=== PATIENT | female | born 1935 | race Caucasian/White ===

== ENCOUNTER 2018-04-16 09:14 | Observation (INO) | payer MEDICARE ==
[~2018-04-16] VITALS: Ht 144.8 cm; Wt 74.8 kg
[~2018-04-16 09:14] MED LIST: ALBU90OI6 INH; ALPR.5; ALPR.5 PO; ATECHL; ATECHL PO; ATEN50; ATEN50 PO; BUME1 PO; BUME2 PO; CHLO25B; CIME400; CIPR500 PO; Duoneb 2.5-0.5 M3 ML INH; ESCI10 PO; ESTEST.625; FLUSAL2505; FLUSAL2505 IH; FLUSAL2505 INH; FURO80; FURO80 PO; GABA100 PO; HYDACE5 PO; IBUHYD; IBUHYD PO; LEVSOD100 PO; LEVSOD50 PO; LIDO5TP TOP; LOSA50; LOSA50 PO; Levaquin500 MG PO; MAGNESIUM400 M1 PO; OMEP20ER; OMEP20ER PO; ORTHO EST; OXYACE5T PO; OXYGEN; POTA10T; POTA10T PO; POTA20PAC PO; POTA8 PO; POTCHL20ER PO; PRILOSEC; PROM25 PO; PROVENTIL; TENORETIC; TENORMIN PO; TOLT2; Zithromax250 MG PO; [UNRECOGNIZED DRUG - CODE]
[2018-04-16] MEDS ORDERED: OMEPRAZOLE MAGN20 MG PO (09:33)
[2018-04-16] MEDS ORDERED: LEVSOD50 PO (09:33)
[2018-04-16] MEDS ORDERED: ALPR.5 PO (09:33)
[2018-04-16] MEDS ORDERED: POTA20LUD PO (09:34)
[2018-04-16] MEDS ORDERED: TENORETIC PO (09:35)
[2018-04-16] MEDS ORDERED: OXYC10TA19 PO (09:35)
[2018-04-16] MEDS ORDERED: FURO80 PO (09:35)
[2018-04-16 10:23] LABS: BASOPHILS ABSOLUTE AUTO 0.07 K/mm3 (0.00-0.23); BASOPHILS PERCENT AUTO 1 % (0-2); EOSINOPHILS ABSOLUTE AUTO 0.25 K/mm3 (0.00-0.68); EOSINOPHILS PERCENT AUTO 3 % (0-6); Hematocrit 30.4 % (33.0-51.0); Hemoglobin 9.9 g/dL (11.5-16.0); IMMATURE GRAN ABSOLUTE AUTO 0.02 K/mm3 (0.00-0.10); IMMATURE GRAN PERCENT AUTO 0 % (0-1); LYMPHOCYTES ABSOLUTE AUTO 0.81 K/mm3 (0.84-5.20); LYMPHOCYTES PERCENT AUTO 10 % (21-46); MONOCYTES ABSOLUTE AUTO 0.98 K/mm3 (0.16-1.47); MONOCYTES PERCENT AUTO 12 % (4-13); Mean Corpuscular HGB 32.8 pg (26.0-34.0); Mean Corpuscular HGB Conc 32.6 g/dL (31.5-36.5); Mean Corpuscular Volume 101 fL (80-100); Mean Platelet Volume 10.1 fL (9.1-12.4); NEUTROPHILS ABSOLUTE AUTO 5.95 K/mm3 (1.96-9.15); NEUTROPHILS PERCENT AUTO 74 % (41-73); Platelet Count 198 K/mm3 (150-400); RDW Coefficient Variation 14.5 % (11.7-14.2); RDW Standard Deviation 53.6 fL (35.1-46.3); Red Blood Cell Count 3.02 M/mm3 (3.80-5.20); White Blood Cell Count 8.08 K/mm3 (4.00-11.30)
[2018-04-16 10:43] LABS: Albumin, Blood 3.3 g/dL (3.4-5.0); Bilirubin, Total 0.9 mg/dL (0.1-1.0); Bun/Creatinine Ratio 13.3 (12.0-20.0); Calcium, Blood 5.5 mg/dL (8.5-10.1); Creatinine, Blood 2.4 mg/dL (0.40-1.00); Globulin, Blood 3.3 g/dL (2.2-4.0); Potassium, Blood 3.3 mmol/L (3.5-5.5); Total Protein, Blood 6.6 g/dL (6.4-8.2)
[2018-04-16 11:52] LABS: Magnesium, Blood 2.1 mg/dL (1.6-2.4)
[2018-04-16 21:05] LABS: Uric Acid, Blood 7.7 mg/dL (2.6-6.0)
[2018-04-17 06:16] LABS: Anion Gap 9 mmol/L (6-16); Blood Urea Nitrogen 28 mg/dL (8-24); Bun/Creatinine Ratio 13.4 (12.0-20.0); CO2, Blood 24 mmol/L (21-32); Calcium, Blood 5.9 mg/dL (8.5-10.1); Chloride, Blood 102 mmol/L (98-108); Creatinine, Blood 2.09 mg/dL (0.40-1.00); Glomerular Filtration Rate 24 (60-); Glucose, Blood 84 mg/dL (70-99); Phosphorus, Blood 2.4 mg/dL (2.5-4.9); Potassium, Blood 3.6 mmol/L (3.5-5.5); Sodium, Blood 135 mmol/L (136-145)
[2018-04-17] MEDS ORDERED: COLCRYS0.6 MG PO (10:17)
[2018-04-17] MEDS ORDERED: Neurontin 100100 MG PO (10:19)
[2018-04-17] MEDS ORDERED: METO50ER PO (10:19)
[2018-04-17] MEDS ORDERED: CITRACAL + D E1 EACH PO (10:21)
== END 2018-04-17 11:15 | disposition home or self-care (01) ==
LOC: ER 09:14 → MEDS 09:15 → ENPENDDIS 04-17 08:30 → MEDS 04-17 11:15
PROVIDERS: Emergency Medicine; Family Medicine
DX: M10.9 Gout, unspecified (principal); I12.9 Hypertensive chronic kidney disease with stage 1 through stage 4 chronic kidney disease, or unspecified chronic kidney disease; N18.9 Chronic kidney disease, unspecified; Q61.3 Polycystic kidney, unspecified; E83.51 Hypocalcemia; E87.6 Hypokalemia; J44.9 Chronic obstructive pulmonary disease, unspecified; R09.02 Hypoxemia; M15.9 Polyosteoarthritis, unspecified; E03.9 Hypothyroidism, unspecified; K21.9 Gastro-esophageal reflux disease without esophagitis; F41.1 Generalized anxiety disorder; Z79.899 Other long term (current) drug therapy; Z88.0 Allergy status to penicillin; Z91.041 Radiographic dye allergy status
CPT/HCPCS: 36415; 80053; 80069; 83735; 84550; 85025; 96361; 96365; 96366; 96367; 99285; G0378; J0610; J3370; J3480; J7120

== ENCOUNTER 2019-10-05 07:03 | Observation (INO) | payer MEDICARE ==
[~2019-10-05] VITALS: Ht 152.4 cm; Wt 73.9 kg
[~2019-10-05 07:03] MED LIST changes: +CITRACAL + D E1 EACH PO; +COLCHICINE0.6 MG PO; +METO50ER PO; +Neurontin 100100 MG PO; +OMEPRAZOLE MAGN20 MG PO; +OXYC10TA19 PO; +POTA20LUD PO; +TENORETIC PO
[2019-10-05 08:07] LABS: BASOPHILS ABSOLUTE AUTO 0.08 K/mm3 (0.00-0.23); BASOPHILS PERCENT AUTO 1 % (0-2); EOSINOPHILS ABSOLUTE AUTO 0.28 K/mm3 (0.00-0.68); EOSINOPHILS PERCENT AUTO 4 % (0-6); Hematocrit 37.5 % (33.0-51.0); IMMATURE GRAN ABSOLUTE AUTO 0.02 K/mm3 (0.00-0.10); IMMATURE GRAN PERCENT AUTO 0 % (0-1); LYMPHOCYTES ABSOLUTE AUTO 1.27 K/mm3 (0.84-5.20); LYMPHOCYTES PERCENT AUTO 17 % (21-46); MONOCYTES ABSOLUTE AUTO 0.45 K/mm3 (0.16-1.47); MONOCYTES PERCENT AUTO 6 % (4-13); Mean Corpuscular HGB 31.4 pg (26.0-34.0); Mean Corpuscular Volume 98 fL (80-100); Mean Platelet Volume 9.5 fL (9.1-12.4); NEUTROPHILS ABSOLUTE AUTO 5.41 K/mm3 (1.96-9.15); NEUTROPHILS PERCENT AUTO 72 % (41-73); Platelet Count 208 K/mm3 (150-400); RDW Standard Deviation 49.6 fL (35.1-46.3); Red Blood Cell Count 3.82 M/mm3 (3.80-5.20); White Blood Cell Count 7.51 K/mm3 (4.00-11.30)
[2019-10-05 08:31] LABS: Alanine Aminotransfer (ALT/SGP 17 U/L (12-78); Albumin, Blood 4.1 g/dL (3.4-5.0); Albumin/Globulin Ratio 1.3 (0.8-1.8); Alk Phos 56 U/L (50-136); Anion Gap 7 mmol/L (6-16); Aspartate Aminotrans (AST/SGOT 25 U/L (12-37); Bilirubin, Total 0.6 mg/dL (0.1-1.0); Blood Urea Nitrogen 17 mg/dL (8-24); Bun/Creatinine Ratio 8.4 (12.0-20.0); CO2, Blood 27 mmol/L (21-32); Calcium, Blood 8.8 mg/dL (8.5-10.1); Chloride, Blood 107 mmol/L (98-108); Creatinine, Blood 2.03 mg/dL (0.40-1.00); Globulin, Blood 3.1 g/dL (2.2-4.0); Glomerular Filtration Rate 25 (60-); Glucose, Blood 94 mg/dL (70-99); Potassium, Blood 3.7 mmol/L (3.5-5.5); Sodium, Blood 141 mmol/L (136-145); Total Protein, Blood 7.2 g/dL (6.4-8.2); Troponin I <0.015 ng/mL (0.000-0.040)
[2019-10-05 10:16] LABS: Magnesium, Blood 2.1 mg/dL (1.6-2.4); Phosphorus, Blood 2.6 mg/dL (2.5-4.9)
[2019-10-05 13:25] LABS: Source, Urine Clean Catch
[2019-10-05 13:34] LABS: Bilirubin, Urine Neg (Neg); Blood, Urine Neg (Neg); Glucose Qualitative, Urine Neg (Neg); Ketones, Urine Neg (Neg); Leukocyte Esterase, Urine Neg (Neg); Nitrite, Urine Neg (Neg); Protein, Urine Neg (Neg); Urobilinogen, Urine NORM (Normal)
[2019-10-05 13:47] LABS: Appearance, Urine Clear (Clear); Color, Urine Yellow (P-Yellow)
[2019-10-05] MEDS ORDERED: Bumetanide1 MG PO (16:04)
--- NOTE | 2019-10-05 16:46 | NUR ---
ARRIVES FROM [facility] VIA W/C. ALERT. ORIENTED. TELE ON AND PER TECH SB AT 59. AWARE MEDS RECONCILLED UP HERE. HAS HAD NTG HEADACHE WITHOUT RELIEF WITH MEDS. WHEN ASKED IF SHE NEEDS SOMETHING ELSE STS "I'LL WAIT."C/O "FLUTTERY BURNING SENSATION MIDSTERNAL". AWARE AND ORDERED MEDS. STEADY GAIT W/WALKER IN ROOM AND IN HALLWAY W/RELATIVE. WCTM
[2019-10-06 04:41] LABS: BASOPHILS ABSOLUTE AUTO 0.07 K/mm3 (0.00-0.23); BASOPHILS PERCENT AUTO 1 % (0-2); EOSINOPHILS ABSOLUTE AUTO 0.38 K/mm3 (0.00-0.68); EOSINOPHILS PERCENT AUTO 5 % (0-6); Hematocrit 33.2 % (33.0-51.0); Hemoglobin 10.6 g/dL (11.5-16.0); IMMATURE GRAN ABSOLUTE AUTO 0.02 K/mm3 (0.00-0.10); IMMATURE GRAN PERCENT AUTO 0 % (0-1); LYMPHOCYTES ABSOLUTE AUTO 2.71 K/mm3 (0.84-5.20); LYMPHOCYTES PERCENT AUTO 35 % (21-46); MONOCYTES ABSOLUTE AUTO 0.73 K/mm3 (0.16-1.47); MONOCYTES PERCENT AUTO 9 % (4-13); Mean Corpuscular HGB 32.3 pg (26.0-34.0); Mean Corpuscular HGB Conc 31.9 g/dL (31.5-36.5); Mean Platelet Volume 9.6 fL (9.1-12.4); NEUTROPHILS ABSOLUTE AUTO 3.86 K/mm3 (1.96-9.15); NEUTROPHILS PERCENT AUTO 50 % (41-73); Platelet Count 171 K/mm3 (150-400); RDW Coefficient Variation 14.2 % (11.7-14.2); RDW Standard Deviation 50.8 fL (35.1-46.3); Red Blood Cell Count 3.28 M/mm3 (3.80-5.20); White Blood Cell Count 7.77 K/mm3 (4.00-11.30)
[2019-10-06 04:47] LABS: Mean Corpuscular Volume 101 fL (80-100)
--- NOTE | 2019-10-06 05:06 | NUR ---
SHIFT SUMMARY NO ACUTE CHANGES TO REPORT THIS SHIFT. PT REMAINS HYPERTENSIVE, BUT BP CAME NO WHERE NEAR HER NUMBERS WHEN SHE WAS ADMITTED. HYDRALYZINE ORDERED FOR BP ABOVE 180. SHE HAS NOT NEEDED HYDRALYZINE THIS SHIFT. PT RECEIVED HER ANTIHYPERTENSIVES HS. SHE COMPLAINS OF BACK PAIN THIS SHIFT AND SOME SCIATIC PAIN. MEDICATED X1 WITH ULTRAM WITH EFFECT. TROPONIN'S HAVE BEEN NEGATIVE. PT A/OX4, CALLS APPROPRIATELY. OVERALL RESTFUL NIGHT. 3L O2 PER PT REQUEST. SHE STATES SHE WEARS 3L AT NOC PRN. PT SATS WNL ON RA. NSR ON TELE. BED IN LOWEST POSITION, CALL LIGHT WITHIN REACH. WILL CONTINUE TO MONITOR AND REPORT TO ONCOMING RN.
[2019-10-06 05:11] LABS: Bun/Creatinine Ratio 9.1 (12.0-20.0); Calcium, Blood 8.3 mg/dL (8.5-10.1); Creatinine, Blood 2.31 mg/dL (0.40-1.00); Potassium, Blood 3.7 mmol/L (3.5-5.5)
[2019-10-06] MEDS ORDERED: CLON.1 PO (08:50)
--- NOTE | 2019-10-06 11:25 | NUR ---
RX FOR ZOFRAN 4 MG ODT ONE Q 8 HRS PRN NAUSEA #10 CALLED TO TRAVON PER
--- NOTE | 2019-10-06 11:58 | NUR ---
REVIEW D'C WITH PATIENT . AWARE HAS ONE MED AT [facility]. HAS F/U APPT W/ TOMORROW. AWARE MAY DO SOME OUT PATIENT PROCEDURES. ANSWER ALL QUESTIONS. IN W/C TO POV.
== END 2019-10-06 12:04 | disposition home or self-care (01) ==
LOC: ER 07:03 → MEDS 07:04
PROVIDERS: Emergency Medicine; Nurse Practitioner Acute Care; ADMIT Internal Medicine
DX: I16.0 Hypertensive urgency (principal); R07.89 Other chest pain; I12.9 Hypertensive chronic kidney disease with stage 1 through stage 4 chronic kidney disease, or unspecified chronic kidney disease; N18.4 Chronic kidney disease, stage 4 (severe); E03.9 Hypothyroidism, unspecified; F41.1 Generalized anxiety disorder; J44.9 Chronic obstructive pulmonary disease, unspecified; G47.36 Sleep related hypoventilation in conditions classified elsewhere; Z79.899 Other long term (current) drug therapy; Z88.0 Allergy status to penicillin; Z88.8 Allergy status to other drugs, medicaments and biological substances; Z91.041 Radiographic dye allergy status; Z91.013 Allergy to seafood
CPT/HCPCS: 36415; 71045; 80048; 80053; 81003; 83735; 84100; 84443; 84484; 85025; 93005; 93010; 96372; 96374; 99285-25; A9270; G0378; J1644; J2405

== ENCOUNTER 2019-11-04 08:14 | Emergency (ER) | payer MEDICARE ==
[~2019-11-04] VITALS: Ht 162.6 cm; Wt 72.6 kg
[~2019-11-04 08:14] MED LIST changes: +Bumetanide1 MG PO; +CLON.1 PO
[2019-11-04 09:25] LABS: Calcium, Ionized (POC) 0.94 mmol/L (1.10-1.46); Chloride (POC) 99 mmol/L (98-108); Creatinine (POC) 2.2 mg/dL (0.6-1.0); Glucose (ISTAT POC) 95 mg/dL (70-99); Hemoglobin (POC) 11.9 g/dL (12.0-16.0); Potassium (POC) 3.5 mmol/L (3.5-5.5); Sodium (POC) 140 mmol/L (135-148); Total CO2 (POC) 31 mmol/L (21-32)
== END 2019-11-04 09:40 | disposition home or self-care (01) ==
LOC: ER 08:14
PROVIDERS: Emergency Medicine
DX: T83.021A Displacement of indwelling urethral catheter, initial encounter (principal); R34 Anuria and oliguria; I10 Essential (primary) hypertension; J44.9 Chronic obstructive pulmonary disease, unspecified; K21.9 Gastro-esophageal reflux disease without esophagitis; Z88.0 Allergy status to penicillin; Z91.013 Allergy to seafood; Z91.048 Other nonmedicinal substance allergy status; Z88.8 Allergy status to other drugs, medicaments and biological substances; Z91.09 Other allergy status, other than to drugs and biological substances; Z79.899 Other long term (current) drug therapy; M54.5 Low back pain; M10.9 Gout, unspecified; Q61.3 Polycystic kidney, unspecified
CPT/HCPCS: 36415; 51702; 51798; 74176; 80047; 80053; 85014; 85025; 93005; 93010; 96374-59; 96375-59; 99283-25; 99284-25; A9270-GY; J2405; J3010

== ENCOUNTER 2020-02-21 12:03 | Inpatient (IN) | payer MEDICARE ==
[~2020-02-21] VITALS: Ht 149.9 cm; Wt 56.7 kg
[~2020-02-21 12:03] MED LIST changes: -Bumetanide1 MG PO; -CLON.1 PO; -METO50ER PO; -Neurontin 100100 MG PO; -OXYC10TA19 PO
[2020-02-21] MEDS ORDERED: OXYC5 PO (13:27)
[2020-02-21] MEDS ORDERED: CLON.1 PO (13:28)
[2020-02-21] MEDS ORDERED: Bumetanide2 MG PO (13:28)
[2020-02-21] MEDS ORDERED: ZALE10 PO (13:29)
[2020-02-21] MEDS ORDERED: Neurontin 100100 MG PO (13:30)
[2020-02-21] MEDS ORDERED: METO50ER PO (13:30)
[2020-02-21] MEDS ORDERED: LEVSOD50 PO (13:31)
[2020-02-21 13:39] LABS: BASOPHILS ABSOLUTE AUTO 0.03 K/mm3 (0.00-0.23); BASOPHILS PERCENT AUTO 1 % (0-2); EOSINOPHILS ABSOLUTE AUTO 0.06 K/mm3 (0.00-0.68); EOSINOPHILS PERCENT AUTO 1 % (0-6); Hematocrit 29.8 % (33.0-51.0); Hemoglobin 9.7 g/dL (11.5-16.0); IMMATURE GRAN ABSOLUTE AUTO 0.02 K/mm3 (0.00-0.10); IMMATURE GRAN PERCENT AUTO 0 % (0-1); LYMPHOCYTES ABSOLUTE AUTO 0.85 K/mm3 (0.84-5.20); LYMPHOCYTES PERCENT AUTO 13 % (21-46); MONOCYTES ABSOLUTE AUTO 0.61 K/mm3 (0.16-1.47); MONOCYTES PERCENT AUTO 9 % (4-13); Mean Corpuscular HGB 31.5 pg (26.0-34.0); Mean Corpuscular HGB Conc 32.6 g/dL (31.5-36.5); Mean Corpuscular Volume 97 fL (80-100); NEUTROPHILS ABSOLUTE AUTO 5.06 K/mm3 (1.96-9.15); NEUTROPHILS PERCENT AUTO 76 % (41-73); Platelet Count 157 K/mm3 (150-400); RDW Coefficient Variation 16.2 % (11.7-14.2); RDW Standard Deviation 58.1 fL (35.1-46.3); Red Blood Cell Count 3.08 M/mm3 (3.80-5.20); White Blood Cell Count 6.63 K/mm3 (4.00-11.30)
[2020-02-21 13:54] LABS: Albumin, Blood 3.2 g/dL (3.4-5.0); Albumin/Globulin Ratio 1.1 (0.8-1.8); Bilirubin, Total 0.7 mg/dL (0.1-1.0); Bun/Creatinine Ratio 12.4 (12.0-20.0); Creatinine, Blood 2.98 mg/dL (0.40-1.00); Potassium, Blood 3.5 mmol/L (3.5-5.5); Total Protein, Blood 6.2 g/dL (6.4-8.2)
[2020-02-22 04:37] LABS: Hematocrit 27.6 % (33.0-51.0); Mean Corpuscular HGB 30.7 pg (26.0-34.0); Mean Corpuscular HGB Conc 32.6 g/dL (31.5-36.5); Mean Platelet Volume 10.3 fL (9.1-12.4); Platelet Count 128 K/mm3 (150-400); RDW Coefficient Variation 16.4 % (11.7-14.2); RDW Standard Deviation 56.9 fL (35.1-46.3); Red Blood Cell Count 2.93 M/mm3 (3.80-5.20); White Blood Cell Count 6.92 K/mm3 (4.00-11.30)
[2020-02-22 04:38] LABS: Mean Corpuscular Volume 94 fL (80-100)
[2020-02-22 04:48] LABS: International Normalized Ratio 1.02; Prothrombin Time Results 10.9 Sec (9.7-11.5)
[2020-02-22 04:54] LABS: Albumin, Blood 2.7 g/dL (3.4-5.0); Bilirubin, Total 0.8 mg/dL (0.1-1.0); Bun/Creatinine Ratio 13.3 (12.0-20.0); Calcium, Blood 7.7 mg/dL (8.5-10.1); Creatinine, Blood 2.55 mg/dL (0.40-1.00); Globulin, Blood 2.6 g/dL (2.2-4.0); Potassium, Blood 3.4 mmol/L (3.5-5.5); Total Protein, Blood 5.3 g/dL (6.4-8.2)
[2020-02-23 04:34] LABS: BASOPHILS ABSOLUTE AUTO 0.04 K/mm3 (0.00-0.23); BASOPHILS PERCENT AUTO 1 % (0-2); EOSINOPHILS ABSOLUTE AUTO 0.14 K/mm3 (0.00-0.68); EOSINOPHILS PERCENT AUTO 2 % (0-6); Hematocrit 27.1 % (33.0-51.0); Hemoglobin 8.7 g/dL (11.5-16.0); IMMATURE GRAN ABSOLUTE AUTO 0.04 K/mm3 (0.00-0.10); IMMATURE GRAN PERCENT AUTO 1 % (0-1); LYMPHOCYTES ABSOLUTE AUTO 1.47 K/mm3 (0.84-5.20); LYMPHOCYTES PERCENT AUTO 19 % (21-46); MONOCYTES ABSOLUTE AUTO 1.08 K/mm3 (0.16-1.47); MONOCYTES PERCENT AUTO 14 % (4-13); Mean Corpuscular HGB 31.5 pg (26.0-34.0); Mean Corpuscular HGB Conc 32.1 g/dL (31.5-36.5); Mean Platelet Volume 10.3 fL (9.1-12.4); NEUTROPHILS ABSOLUTE AUTO 4.97 K/mm3 (1.96-9.15); NEUTROPHILS PERCENT AUTO 64 % (41-73); Platelet Count 169 K/mm3 (150-400); RDW Coefficient Variation 16.7 % (11.7-14.2); RDW Standard Deviation 60.4 fL (35.1-46.3); Red Blood Cell Count 2.76 M/mm3 (3.80-5.20); White Blood Cell Count 7.74 K/mm3 (4.00-11.30)
[2020-02-23 04:36] LABS: Mean Corpuscular Volume 98 fL (80-100)
[2020-02-23 04:55] LABS: Albumin, Blood 2.5 g/dL (3.4-5.0); Anion Gap 4 mmol/L (6-16); Blood Urea Nitrogen 30 mg/dL (8-24); Bun/Creatinine Ratio 12.2 (12.0-20.0); CO2, Blood 29 mmol/L (21-32); Calcium, Blood 7.7 mg/dL (8.5-10.1); Chloride, Blood 106 mmol/L (98-108); Creatinine, Blood 2.45 mg/dL (0.40-1.00); Glomerular Filtration Rate 20 (60-); Glucose, Blood 93 mg/dL (70-99); Phosphorus, Blood 3.1 mg/dL (2.5-4.9); Potassium, Blood 3.5 mmol/L (3.5-5.5); Sodium, Blood 139 mmol/L (136-145)
[2020-02-24 04:17] LABS: BASOPHILS ABSOLUTE AUTO 0.04 K/mm3 (0.00-0.23); BASOPHILS PERCENT AUTO 1 % (0-2); EOSINOPHILS ABSOLUTE AUTO 0.43 K/mm3 (0.00-0.68); EOSINOPHILS PERCENT AUTO 6 % (0-6); Hematocrit 21.7 % (33.0-51.0); IMMATURE GRAN ABSOLUTE AUTO 0.03 K/mm3 (0.00-0.10); IMMATURE GRAN PERCENT AUTO 0 % (0-1); LYMPHOCYTES ABSOLUTE AUTO 1.61 K/mm3 (0.84-5.20); LYMPHOCYTES PERCENT AUTO 24 % (21-46); MONOCYTES ABSOLUTE AUTO 0.91 K/mm3 (0.16-1.47); MONOCYTES PERCENT AUTO 14 % (4-13); Mean Corpuscular HGB 31.5 pg (26.0-34.0); Mean Corpuscular HGB Conc 32.3 g/dL (31.5-36.5); Mean Corpuscular Volume 98 fL (80-100); Mean Platelet Volume 10.2 fL (9.1-12.4); NEUTROPHILS ABSOLUTE AUTO 3.71 K/mm3 (1.96-9.15); NEUTROPHILS PERCENT AUTO 55 % (41-73); Platelet Count 127 K/mm3 (150-400); RDW Coefficient Variation 16.5 % (11.7-14.2); RDW Standard Deviation 59.4 fL (35.1-46.3); Red Blood Cell Count 2.22 M/mm3 (3.80-5.20); White Blood Cell Count 6.73 K/mm3 (4.00-11.30)
[2020-02-24 04:37] LABS: Albumin, Blood 2.2 g/dL (3.4-5.0); Anion Gap 6 mmol/L (6-16); Blood Urea Nitrogen 32 mg/dL (8-24); Bun/Creatinine Ratio 12.2 (12.0-20.0); CO2, Blood 28 mmol/L (21-32); Calcium, Blood 7.8 mg/dL (8.5-10.1); Chloride, Blood 103 mmol/L (98-108); Creatinine, Blood 2.62 mg/dL (0.40-1.00); Glomerular Filtration Rate 19 (60-); Glucose, Blood 103 mg/dL (70-99); Magnesium, Blood 1.7 mg/dL (1.6-2.4); Potassium, Blood 3.7 mmol/L (3.5-5.5); Sodium, Blood 137 mmol/L (136-145)
[2020-02-25 03:51] LABS: Hematocrit 26.9 % (33.0-51.0); Hemoglobin 8.7 g/dL (11.5-16.0); Mean Corpuscular HGB 30.7 pg (26.0-34.0); Mean Corpuscular HGB Conc 32.3 g/dL (31.5-36.5); Mean Platelet Volume 10.2 fL (9.1-12.4); Platelet Count 168 K/mm3 (150-400); RDW Coefficient Variation 16.2 % (11.7-14.2); RDW Standard Deviation 56.2 fL (35.1-46.3); Red Blood Cell Count 2.83 M/mm3 (3.80-5.20); White Blood Cell Count 7.88 K/mm3 (4.00-11.30)
[2020-02-25 03:55] LABS: Mean Corpuscular Volume 95 fL (80-100)
[2020-02-25 04:09] LABS: Albumin, Blood 2.5 g/dL (3.4-5.0); Anion Gap 6 mmol/L (6-16); Blood Urea Nitrogen 31 mg/dL (8-24); Bun/Creatinine Ratio 13.7 (12.0-20.0); CO2, Blood 30 mmol/L (21-32); Calcium, Blood 8.7 mg/dL (8.5-10.1); Chloride, Blood 102 mmol/L (98-108); Creatinine, Blood 2.26 mg/dL (0.40-1.00); Glomerular Filtration Rate 22 (60-); Glucose, Blood 96 mg/dL (70-99); Magnesium, Blood 1.9 mg/dL (1.6-2.4); Phosphorus, Blood 3.9 mg/dL (2.5-4.9); Sodium, Blood 138 mmol/L (136-145)
== END 2020-02-25 13:03 | disposition home or self-care (01) | DRG 481 ==
LOC: ER 12:03 → SURS 14:43
PROVIDERS: Emergency Medicine; Internal Medicine; Internal Medicine Nephrology; Nurse Practitioner Acute Care; Orthopaedic Surgery; ADMIT Hospitalist
PROC: 30233N1 Transfusion of Nonautologous Red Blood Cells into Peripheral Vein, Percutaneous Approach (ICD-10-PCS; 2020-02-22)
PROC: 0QS604Z Reposition Right Upper Femur with Internal Fixation Device, Open Approach (ICD-10-PCS; principal; 2020-02-22 13:00)
DX: S72.001A Fracture of unspecified part of neck of right femur, initial encounter for closed fracture (principal); N17.9 Acute kidney failure, unspecified; N18.4 Chronic kidney disease, stage 4 (severe); Q61.3 Polycystic kidney, unspecified; M97.11XA Periprosthetic fracture around internal prosthetic right knee joint, initial encounter; N25.81 Secondary hyperparathyroidism of renal origin; I12.9 Hypertensive chronic kidney disease with stage 1 through stage 4 chronic kidney disease, or unspecified chronic kidney disease; D63.1 Anemia in chronic kidney disease; J44.9 Chronic obstructive pulmonary disease, unspecified; E03.9 Hypothyroidism, unspecified; R54 Age-related physical debility; W19.XXXA Unspecified fall, initial encounter; F41.1 Generalized anxiety disorder; Z96.653 Presence of artificial knee joint, bilateral; Z66 Do not resuscitate; S72.141A Displaced intertrochanteric fracture of right femur, initial encounter for closed fracture; K21.9 Gastro-esophageal reflux disease without esophagitis; E87.6 Hypokalemia; Z99.81 Dependence on supplemental oxygen; E87.70 Fluid overload, unspecified
CPT/HCPCS: 36415; 71045; 72192; 73502; 73552; 76770; 80053; 80069; 83735; 85025; 85027; 85610; 86850; 86900; 86901; 86923; 94640; 94760; 96361; 96374; 96375; 97110; 97116; 97162; 97165; 97535; 99285-25; A9270; A9270-GY; C1713; C1751; C1769; J0881; J1100; J1170; J1650; J2250; J2370; J2405; J2704; J3010; J3370; J3480; J7030; J7050; P9016

== ENCOUNTER 2020-03-06 21:22 | Inpatient (IN) | payer MEDICARE ==
[~2020-03-06] VITALS: Ht 147.3 cm; Wt 65.8 kg
[~2020-03-06 21:22] MED LIST changes: +Bumetanide2 MG PO; +CLON.1 PO; +METO50ER PO; +Neurontin 100100 MG PO; +OXYC5 PO; +ZALE10 PO
[2020-03-07 05:07] LABS: BASOPHILS ABSOLUTE AUTO 0.08 K/mm3 (0.00-0.23); BASOPHILS PERCENT AUTO 1 % (0-2); EOSINOPHILS ABSOLUTE AUTO 0.23 K/mm3 (0.00-0.68); EOSINOPHILS PERCENT AUTO 2 % (0-6); Hematocrit 34.1 % (33.0-51.0); Hemoglobin 10.9 g/dL (11.5-16.0); IMMATURE GRAN ABSOLUTE AUTO 0.07 K/mm3 (0.00-0.10); IMMATURE GRAN PERCENT AUTO 1 % (0-1); LYMPHOCYTES ABSOLUTE AUTO 2.55 K/mm3 (0.84-5.20); LYMPHOCYTES PERCENT AUTO 20 % (21-46); MONOCYTES ABSOLUTE AUTO 1.09 K/mm3 (0.16-1.47); MONOCYTES PERCENT AUTO 9 % (4-13); Mean Platelet Volume 9.7 fL (9.1-12.4); NEUTROPHILS ABSOLUTE AUTO 8.66 K/mm3 (1.96-9.15); NEUTROPHILS PERCENT AUTO 68 % (41-73); Platelet Count 373 K/mm3 (150-400); RDW Coefficient Variation 16.8 % (11.7-14.2); RDW Standard Deviation 60.5 fL (35.1-46.3); Red Blood Cell Count 3.41 M/mm3 (3.80-5.20); White Blood Cell Count 12.68 K/mm3 (4.00-11.30)
[2020-03-07 05:08] LABS: Mean Corpuscular Volume 100 fL (80-100)
[2020-03-07 05:27] LABS: Bun/Creatinine Ratio 12.7 (12.0-20.0); Calcium, Blood 7.4 mg/dL (8.5-10.1); Creatinine, Blood 2.04 mg/dL (0.40-1.00); Potassium, Blood 3.1 mmol/L (3.5-5.5)
[2020-03-08 05:16] LABS: BASOPHILS ABSOLUTE AUTO 0.05 K/mm3 (0.00-0.23); BASOPHILS PERCENT AUTO 1 % (0-2); EOSINOPHILS ABSOLUTE AUTO 0.18 K/mm3 (0.00-0.68); EOSINOPHILS PERCENT AUTO 2 % (0-6); Hemoglobin 10.3 g/dL (11.5-16.0); IMMATURE GRAN ABSOLUTE AUTO 0.05 K/mm3 (0.00-0.10); IMMATURE GRAN PERCENT AUTO 1 % (0-1); LYMPHOCYTES ABSOLUTE AUTO 2.47 K/mm3 (0.84-5.20); LYMPHOCYTES PERCENT AUTO 26 % (21-46); MONOCYTES PERCENT AUTO 11 % (4-13); Mean Corpuscular HGB Conc 31.2 g/dL (31.5-36.5); Mean Platelet Volume 9.6 fL (9.1-12.4); NEUTROPHILS ABSOLUTE AUTO 5.63 K/mm3 (1.96-9.15); NEUTROPHILS PERCENT AUTO 60 % (41-73); Platelet Count 335 K/mm3 (150-400); RDW Coefficient Variation 17.2 % (11.7-14.2); RDW Standard Deviation 64.1 fL (35.1-46.3); Red Blood Cell Count 3.22 M/mm3 (3.80-5.20); White Blood Cell Count 9.38 K/mm3 (4.00-11.30)
[2020-03-08 05:18] LABS: Mean Corpuscular Volume 103 fL (80-100)
[2020-03-08 05:36] LABS: Albumin, Blood 2.6 g/dL (3.4-5.0); Anion Gap 5 mmol/L (6-16); Blood Urea Nitrogen 23 mg/dL (8-24); CO2, Blood 29 mmol/L (21-32); Calcium, Blood 7.6 mg/dL (8.5-10.1); Chloride, Blood 107 mmol/L (98-108); Glomerular Filtration Rate 24 (60-); Glucose, Blood 84 mg/dL (70-99); Potassium, Blood 3.4 mmol/L (3.5-5.5); Sodium, Blood 141 mmol/L (136-145)
[2020-03-11] MEDS ORDERED: CYCL10 PO (11:32)
== END 2020-03-11 12:08 | disposition home health service (06) | DRG 537 ==
LOC: ER 21:22 → MEDS 21:23
PROVIDERS: Family Medicine; Nurse Practitioner Acute Care; ADMIT Internal Medicine
DX: S76.011A Strain of muscle, fascia and tendon of right hip, initial encounter (principal); N18.4 Chronic kidney disease, stage 4 (severe); J44.9 Chronic obstructive pulmonary disease, unspecified; E87.6 Hypokalemia; I12.9 Hypertensive chronic kidney disease with stage 1 through stage 4 chronic kidney disease, or unspecified chronic kidney disease; E03.9 Hypothyroidism, unspecified; D63.1 Anemia in chronic kidney disease; F41.1 Generalized anxiety disorder; Z87.718 Personal history of other specified (corrected) congenital malformations of genitourinary system; M79.81 Nontraumatic hematoma of soft tissue; Z99.81 Dependence on supplemental oxygen; M51.36 Other intervertebral disc degeneration, lumbar region
CPT/HCPCS: 36415; 73502; 73700; 80048; 80069; 85025; 93971; 94760; 96372; 96374; 96375; 96376; 97110; 97116; 97162; 97165; 97535; 99285-25; A9270; A9270-GY; G0378; J1170; J1644; J2405; J3010

== ENCOUNTER 2020-04-22 10:02 | Emergency (ER) | payer MEDICARE, OTHER ==
[~2020-04-22] VITALS: Ht 147.3 cm; Wt 68.0 kg
[~2020-04-22 10:02] MED LIST changes: +CYCL10 PO
[2020-04-22 10:49] LABS: BASOPHILS ABSOLUTE AUTO 0.08 K/mm3 (0.00-0.23); BASOPHILS PERCENT AUTO 1 % (0-2); EOSINOPHILS ABSOLUTE AUTO 0.41 K/mm3 (0.00-0.68); EOSINOPHILS PERCENT AUTO 6 % (0-6); Hemoglobin 11.8 g/dL (11.5-16.0); IMMATURE GRAN ABSOLUTE AUTO 0.03 K/mm3 (0.00-0.10); IMMATURE GRAN PERCENT AUTO 1 % (0-1); LYMPHOCYTES ABSOLUTE AUTO 1.54 K/mm3 (0.84-5.20); LYMPHOCYTES PERCENT AUTO 23 % (21-46); MONOCYTES ABSOLUTE AUTO 0.67 K/mm3 (0.16-1.47); MONOCYTES PERCENT AUTO 10 % (4-13); Mean Corpuscular HGB 32.2 pg (26.0-34.0); Mean Corpuscular HGB Conc 32.8 g/dL (31.5-36.5); Mean Corpuscular Volume 98 fL (80-100); Mean Platelet Volume 10.2 fL (9.1-12.4); NEUTROPHILS ABSOLUTE AUTO 3.86 K/mm3 (1.96-9.15); NEUTROPHILS PERCENT AUTO 59 % (41-73); Platelet Count 191 K/mm3 (150-400); RDW Coefficient Variation 14.3 % (11.7-14.2); RDW Standard Deviation 52.1 fL (35.1-46.3); Red Blood Cell Count 3.67 M/mm3 (3.80-5.20); White Blood Cell Count 6.59 K/mm3 (4.00-11.30)
[2020-04-22 11:18] LABS: Alanine Aminotransfer (ALT/SGP 30 U/L (12-78); Albumin, Blood 3.4 g/dL (3.4-5.0); Albumin/Globulin Ratio 1.1 (0.8-1.8); Alk Phos 68 U/L (50-136); Anion Gap 10 mmol/L (6-16); Aspartate Aminotrans (AST/SGOT 48 U/L (12-37); Bilirubin, Total 0.7 mg/dL (0.1-1.0); Blood Urea Nitrogen 23 mg/dL (8-24); Bun/Creatinine Ratio 10.4 (12.0-20.0); CO2, Blood 28 mmol/L (21-32); Calcium, Blood 8.3 mg/dL (8.5-10.1); Chloride, Blood 99 mmol/L (98-108); Creatinine, Blood 2.21 mg/dL (0.40-1.00); Globulin, Blood 3.2 g/dL (2.2-4.0); Glomerular Filtration Rate 23 (60-); Glucose, Blood 88 mg/dL (70-99); Potassium, Blood 3.3 mmol/L (3.5-5.5); Sodium, Blood 137 mmol/L (136-145); Total Protein, Blood 6.6 g/dL (6.4-8.2); Troponin I <0.015 ng/mL (0.000-0.040)
== END 2020-04-22 12:37 | disposition home or self-care (01) ==
LOC: ER 10:02
PROVIDERS: Emergency Medicine
DX: I11.0 Hypertensive heart disease with heart failure (principal); I50.9 Heart failure, unspecified; J44.9 Chronic obstructive pulmonary disease, unspecified; K21.9 Gastro-esophageal reflux disease without esophagitis; Z79.899 Other long term (current) drug therapy
CPT/HCPCS: 71046; 80053; 83880; 84484; 85025; 93005; 93010; 99284-25

== ENCOUNTER 2020-04-29 13:35 | Emergency (ER) | payer MEDICARE, OTHER ==
[~2020-04-29] VITALS: Ht 134.6 cm; Wt 68.0 kg
[~2020-04-29 13:35] MED LIST changes: -CYCL10 PO; +CYCLOBENZAPRINE5 MG PO; +EUTHYROX50 MCG PO; +OXYC10TA19 PO; -OXYC5 PO
[2020-04-29 16:39] LABS: BASOPHILS ABSOLUTE AUTO 0.08 K/mm3 (0.00-0.23); BASOPHILS PERCENT AUTO 1 % (0-2); EOSINOPHILS ABSOLUTE AUTO 0.41 K/mm3 (0.00-0.68); EOSINOPHILS PERCENT AUTO 6 % (0-6); Hematocrit 35.8 % (33.0-51.0); Hemoglobin 11.4 g/dL (11.5-16.0); IMMATURE GRAN ABSOLUTE AUTO 0.02 K/mm3 (0.00-0.10); IMMATURE GRAN PERCENT AUTO 0 % (0-1); LYMPHOCYTES ABSOLUTE AUTO 1.56 K/mm3 (0.84-5.20); LYMPHOCYTES PERCENT AUTO 21 % (21-46); MONOCYTES ABSOLUTE AUTO 0.81 K/mm3 (0.16-1.47); MONOCYTES PERCENT AUTO 11 % (4-13); Mean Corpuscular HGB 31.8 pg (26.0-34.0); Mean Corpuscular HGB Conc 31.8 g/dL (31.5-36.5); Mean Corpuscular Volume 100 fL (80-100); Mean Platelet Volume 10.6 fL (9.1-12.4); NEUTROPHILS ABSOLUTE AUTO 4.42 K/mm3 (1.96-9.15); NEUTROPHILS PERCENT AUTO 61 % (41-73); Platelet Count 184 K/mm3 (150-400); RDW Coefficient Variation 14.1 % (11.7-14.2); RDW Standard Deviation 52.4 fL (35.1-46.3); Red Blood Cell Count 3.58 M/mm3 (3.80-5.20)
[2020-04-29 16:52] LABS: Alanine Aminotransfer (ALT/SGP 28 U/L (12-78); Albumin, Blood 3.5 g/dL (3.4-5.0); Albumin/Globulin Ratio 1.2 (0.8-1.8); Alk Phos 71 U/L (50-136); Anion Gap 5 mmol/L (6-16); Aspartate Aminotrans (AST/SGOT 40 U/L (12-37); Bilirubin, Total 0.8 mg/dL (0.1-1.0); Blood Urea Nitrogen 29 mg/dL (8-24); Bun/Creatinine Ratio 11.6 (12.0-20.0); CO2, Blood 30 mmol/L (21-32); Calcium, Blood 8.9 mg/dL (8.5-10.1); Chloride, Blood 101 mmol/L (98-108); Creatinine, Blood 2.51 mg/dL (0.40-1.00); Glomerular Filtration Rate 19 (60-); Glucose, Blood 100 mg/dL (70-99); Potassium, Blood 4.2 mmol/L (3.5-5.5); Sodium, Blood 136 mmol/L (136-145); Total Protein, Blood 6.5 g/dL (6.4-8.2); Troponin I <0.015 ng/mL (0.000-0.040)
[2020-04-29] MEDS ORDERED: Aldactone100 MG PO (17:54)
[2020-04-29] MEDS ORDERED: Norvasc2.5 MG PO (17:54)
== END 2020-04-29 18:37 | disposition home or self-care (01) ==
LOC: ER 13:35
PROVIDERS: Physician Assistant
DX: I13.0 Hypertensive heart and chronic kidney disease with heart failure and stage 1 through stage 4 chronic kidney disease, or unspecified chronic kidney disease (principal); N18.9 Chronic kidney disease, unspecified; I50.9 Heart failure, unspecified; Z88.0 Allergy status to penicillin; Z91.013 Allergy to seafood; Z91.048 Other nonmedicinal substance allergy status; Z91.09 Other allergy status, other than to drugs and biological substances; Z88.8 Allergy status to other drugs, medicaments and biological substances; Z79.899 Other long term (current) drug therapy; J44.9 Chronic obstructive pulmonary disease, unspecified; K21.9 Gastro-esophageal reflux disease without esophagitis; M10.9 Gout, unspecified
CPT/HCPCS: 36415; 71046; 80053; 83880; 84484; 85025; 93005; 93010; 96374; 99284-25

== ENCOUNTER 2020-05-01 13:17 | Emergency (ER) | payer MEDICARE ==
[~2020-05-01] VITALS: Ht 147.3 cm; Wt 65.8 kg
[~2020-05-01 13:17] MED LIST changes: +Aldactone100 MG PO; +Norvasc2.5 MG PO
[2020-05-01 14:00] LABS: BASOPHILS ABSOLUTE AUTO 0.04 K/mm3 (0.00-0.23); BASOPHILS PERCENT AUTO 1 % (0-2); EOSINOPHILS ABSOLUTE AUTO 0.13 K/mm3 (0.00-0.68); EOSINOPHILS PERCENT AUTO 2 % (0-6); Hematocrit 39.9 % (33.0-51.0); Hemoglobin 12.8 g/dL (11.5-16.0); IMMATURE GRAN ABSOLUTE AUTO 0.01 K/mm3 (0.00-0.10); IMMATURE GRAN PERCENT AUTO 0 % (0-1); LYMPHOCYTES ABSOLUTE AUTO 1.59 K/mm3 (0.84-5.20); LYMPHOCYTES PERCENT AUTO 24 % (21-46); MONOCYTES ABSOLUTE AUTO 0.75 K/mm3 (0.16-1.47); MONOCYTES PERCENT AUTO 11 % (4-13); Mean Corpuscular HGB 31.8 pg (26.0-34.0); Mean Corpuscular HGB Conc 32.1 g/dL (31.5-36.5); Mean Corpuscular Volume 99 fL (80-100); Mean Platelet Volume 10.5 fL (9.1-12.4); NEUTROPHILS ABSOLUTE AUTO 4.13 K/mm3 (1.96-9.15); NEUTROPHILS PERCENT AUTO 62 % (41-73); Platelet Count 215 K/mm3 (150-400); RDW Coefficient Variation 14.1 % (11.7-14.2); RDW Standard Deviation 51.8 fL (35.1-46.3); Red Blood Cell Count 4.02 M/mm3 (3.80-5.20); White Blood Cell Count 6.65 K/mm3 (4.00-11.30)
[2020-05-01 14:19] LABS: Alanine Aminotransfer (ALT/SGP 26 U/L (12-78); Albumin, Blood 3.8 g/dL (3.4-5.0); Albumin/Globulin Ratio 1.1 (0.8-1.8); Alk Phos 71 U/L (50-136); Anion Gap 6 mmol/L (6-16); Aspartate Aminotrans (AST/SGOT 34 U/L (12-37); Bilirubin, Total 0.6 mg/dL (0.1-1.0); Blood Urea Nitrogen 26 mg/dL (8-24); Bun/Creatinine Ratio 11.5 (12.0-20.0); CO2, Blood 31 mmol/L (21-32); Calcium, Blood 8.9 mg/dL (8.5-10.1); Chloride, Blood 100 mmol/L (98-108); Creatinine, Blood 2.27 mg/dL (0.40-1.00); Globulin, Blood 3.4 g/dL (2.2-4.0); Glomerular Filtration Rate 22 (60-); Glucose, Blood 102 mg/dL (70-99); Potassium, Blood 3.7 mmol/L (3.5-5.5); Sodium, Blood 137 mmol/L (136-145); Total Protein, Blood 7.2 g/dL (6.4-8.2); Troponin I <0.015 ng/mL (0.000-0.040)
[2020-05-01] MEDS ORDERED: SYMBICORT 16010.2 GM INH (17:22)
== END 2020-05-01 18:50 | disposition home or self-care (01) ==
LOC: ER 13:17
PROVIDERS: Physician Assistant
DX: R06.00 Dyspnea, unspecified (principal); Z88.0 Allergy status to penicillin; Z91.013 Allergy to seafood; Z91.048 Other nonmedicinal substance allergy status; Z91.09 Other allergy status, other than to drugs and biological substances; Z88.8 Allergy status to other drugs, medicaments and biological substances; Z79.899 Other long term (current) drug therapy
CPT/HCPCS: 36415; 71045; 80053; 83880; 84484; 85025; 93005; 93010; 99284-25

== ENCOUNTER 2020-06-19 14:53 | Emergency (ER) | payer MEDICARE ==
[~2020-06-19] VITALS: Ht 149.9 cm; Wt 68.0 kg
[~2020-06-19 14:53] MED LIST changes: +SYMBICORT 16010.2 GM INH
[2020-06-19 15:44] LABS: Source, Urine Clean Catch
[2020-06-19 15:49] LABS: Bilirubin, Urine Neg (Neg); Blood, Urine Neg (Neg); Glucose Qualitative, Urine Neg (Neg); Ketones, Urine Neg (Neg); Leukocyte Esterase, Urine 2+ (Neg); Nitrite, Urine Neg (Neg); Protein, Urine Neg (Neg); Specific Gravity, Urine 1.005 (1.003-1.022); Urobilinogen, Urine NORM (Normal)
[2020-06-19 16:03] LABS: BASOPHILS ABSOLUTE AUTO 0.06 K/mm3 (0.00-0.23); BASOPHILS PERCENT AUTO 1 % (0-2); EOSINOPHILS PERCENT AUTO 6 % (0-6); Hematocrit 32.5 % (33.0-51.0); Hemoglobin 10.4 g/dL (11.5-16.0); IMMATURE GRAN ABSOLUTE AUTO 0.02 K/mm3 (0.00-0.10); IMMATURE GRAN PERCENT AUTO 0 % (0-1); LYMPHOCYTES ABSOLUTE AUTO 1.19 K/mm3 (0.84-5.20); LYMPHOCYTES PERCENT AUTO 18 % (21-46); MONOCYTES ABSOLUTE AUTO 0.61 K/mm3 (0.16-1.47); MONOCYTES PERCENT AUTO 9 % (4-13); Mean Corpuscular HGB 31.9 pg (26.0-34.0); Mean Corpuscular Volume 100 fL (80-100); NEUTROPHILS PERCENT AUTO 65 % (41-73); Platelet Count 173 K/mm3 (150-400); RDW Coefficient Variation 14.5 % (11.7-14.2); RDW Standard Deviation 52.8 fL (35.1-46.3); Red Blood Cell Count 3.26 M/mm3 (3.80-5.20); White Blood Cell Count 6.48 K/mm3 (4.00-11.30)
[2020-06-19 16:18] LABS: Appearance, Urine Clear (Clear); Color, Urine Pale Yellow (P-Yellow)
[2020-06-19 16:19] LABS: Red Blood Cells, Urine Not Seen /hpf (0-2); Squamous Epithelial Cells Rare /hpf (Few); White Blood Cells, Urine 0-2 /hpf (0-5)
[2020-06-19 16:20] LABS: Bacteria Few /hpf; Transitional Epithelial Cells Rare /hpf (0-Rare)
[2020-06-19 16:21] LABS: Albumin, Blood 3.5 g/dL (3.4-5.0); Albumin/Globulin Ratio 1.1 (0.8-1.8); Bilirubin, Total 0.6 mg/dL (0.1-1.0); Bun/Creatinine Ratio 11.5 (12.0-20.0); Calcium, Blood 7.4 mg/dL (8.5-10.1); Creatinine, Blood 2.26 mg/dL (0.40-1.00); Globulin, Blood 3.2 g/dL (2.2-4.0); Potassium, Blood 3.9 mmol/L (3.5-5.5); Total Protein, Blood 6.7 g/dL (6.4-8.2)
== END 2020-06-19 17:55 | disposition home or self-care (01) ==
LOC: ER 14:53
PROVIDERS: Physician Assistant
DX: M54.5 Low back pain (principal); Z88.0 Allergy status to penicillin; Z91.013 Allergy to seafood; Z91.09 Other allergy status, other than to drugs and biological substances; Z91.048 Other nonmedicinal substance allergy status; Z79.899 Other long term (current) drug therapy; I10 Essential (primary) hypertension; J44.9 Chronic obstructive pulmonary disease, unspecified; K21.9 Gastro-esophageal reflux disease without esophagitis; M10.9 Gout, unspecified
CPT/HCPCS: 36415; 80053; 81001; 83690; 84484; 85025; 87086; 93005; 93010; 96374; 99284-25; J2405

== ENCOUNTER 2021-06-02 18:10 | Emergency (ER) | payer MEDICARE ==
[~2021-06-02] VITALS: Ht 152.4 cm; Wt 63.5 kg
[2021-06-02 19:08] LABS: BASOPHILS ABSOLUTE AUTO 0.05 K/mm3 (0.00-0.23); BASOPHILS PERCENT AUTO 1 % (0-2); EOSINOPHILS ABSOLUTE AUTO 0.57 K/mm3 (0.00-0.68); EOSINOPHILS PERCENT AUTO 7 % (0-6); Hemoglobin 12.2 g/dL (11.5-16.0); IMMATURE GRAN ABSOLUTE AUTO 0.03 K/mm3 (0.00-0.10); IMMATURE GRAN PERCENT AUTO 0 % (0-1); LYMPHOCYTES ABSOLUTE AUTO 1.68 K/mm3 (0.84-5.20); LYMPHOCYTES PERCENT AUTO 20 % (21-46); MONOCYTES ABSOLUTE AUTO 0.77 K/mm3 (0.16-1.47); MONOCYTES PERCENT AUTO 9 % (4-13); Mean Corpuscular HGB 32.1 pg (26.0-34.0); Mean Corpuscular Volume 97 fL (80-100); Mean Platelet Volume 9.7 fL (9.1-12.4); NEUTROPHILS ABSOLUTE AUTO 5.39 K/mm3 (1.96-9.15); NEUTROPHILS PERCENT AUTO 63 % (41-73); Platelet Count 257 K/mm3 (150-400); RDW Coefficient Variation 15.3 % (11.7-14.2); RDW Standard Deviation 53.5 fL (35.1-46.3); White Blood Cell Count 8.49 K/mm3 (4.00-11.30)
[2021-06-02 19:25] LABS: Albumin, Blood 3.2 g/dL (3.4-5.0); Albumin/Globulin Ratio 0.9 (0.8-1.8); Bilirubin, Total 0.4 mg/dL (0.1-1.0); Bun/Creatinine Ratio 19.3 (12.0-20.0); Calcium, Blood 8.9 mg/dL (8.5-10.1); Creatinine, Blood 2.18 mg/dL (0.40-1.00); Globulin, Blood 3.6 g/dL (2.2-4.0); Potassium, Blood 3.2 mmol/L (3.5-5.5); Total Protein, Blood 6.8 g/dL (6.4-8.2)
[2021-06-02 21:16] LABS: Source, Urine Clean Catch
[2021-06-02 21:18] LABS: Bilirubin, Urine Neg (Neg); Blood, Urine 1+ (Neg); Glucose Qualitative, Urine Neg (Neg); Ketones, Urine Neg (Neg); Leukocyte Esterase, Urine 3+ (Neg); Nitrite, Urine Pos (Neg); Protein, Urine 2+ (Neg); Specific Gravity, Urine 1.015 (1.003-1.022); Urobilinogen, Urine NORM (Normal)
[2021-06-02 21:27] LABS: Color, Urine Yellow (P-Yellow)
[2021-06-02 21:28] LABS: Appearance, Urine Cloudy (Clear)
[2021-06-02 21:29] LABS: Bacteria Many /hpf; Red Blood Cells, Urine 0-2 /hpf (0-2); Squamous Epithelial Cells Few /hpf (Few); White Blood Cells, Urine TNTC /hpf (0-5)
[2021-06-02] MEDS ORDERED: CEPH500 PO (22:57)
[2021-06-02] MEDS ORDERED: Cipro500 MG PO (23:16)
== END 2021-06-02 23:22 | disposition home or self-care (01) ==
LOC: ER 18:10
PROVIDERS: Physician Assistant
DX: N39.0 Urinary tract infection, site not specified (principal); I10 Essential (primary) hypertension; J44.9 Chronic obstructive pulmonary disease, unspecified; K21.9 Gastro-esophageal reflux disease without esophagitis; Z88.0 Allergy status to penicillin; Z91.013 Allergy to seafood; Z88.1 Allergy status to other antibiotic agents; Z91.041 Radiographic dye allergy status; Z79.899 Other long term (current) drug therapy
CPT/HCPCS: 36415; 51701; 73502; 80053; 81001; 85025; 87077; 87086; 87186; 93005; 93010; 99284-25

== ENCOUNTER 2021-08-19 22:43 | Emergency (ER) | payer MEDICARE ==
[~2021-08-19] VITALS: Ht 152.4 cm; Wt 69.8 kg
[~2021-08-19 22:43] MED LIST changes: +CEPH500 PO; +Cipro500 MG PO
== END 2021-08-20 02:19 | disposition home or self-care (01) ==
LOC: ER 22:43
DX: S00.12XA Contusion of left eyelid and periocular area, initial encounter (principal); S00.11XA Contusion of right eyelid and periocular area, initial encounter; S40.011A Contusion of right shoulder, initial encounter; Z88.0 Allergy status to penicillin; Z91.013 Allergy to seafood; Z91.048 Other nonmedicinal substance allergy status; Z88.8 Allergy status to other drugs, medicaments and biological substances; Z79.899 Other long term (current) drug therapy; I10 Essential (primary) hypertension; J44.9 Chronic obstructive pulmonary disease, unspecified; K21.9 Gastro-esophageal reflux disease without esophagitis; M10.9 Gout, unspecified; W18.30XA Fall on same level, unspecified, initial encounter
CPT/HCPCS: 70450; 72125; 73030; 96374; 99284-25; J1170

== ENCOUNTER 2021-11-25 17:54 | Inpatient (IN) | payer MEDICARE ==
[~2021-11-25] VITALS: Ht 149.9 cm; Wt 54.3 kg
[2021-11-25 19:25] LABS: BASOPHILS ABSOLUTE AUTO 0.01 K/mm3 (0.00-0.23); BASOPHILS PERCENT AUTO 0 % (0-2); EOSINOPHILS ABSOLUTE AUTO 0.02 K/mm3 (0.00-0.68); EOSINOPHILS PERCENT AUTO 1 % (0-6); Hematocrit 34.8 % (33.0-51.0); Hemoglobin 11.7 g/dL (11.5-16.0); IMMATURE GRAN ABSOLUTE AUTO 0.01 K/mm3 (0.00-0.10); IMMATURE GRAN PERCENT AUTO 0 % (0-1); LYMPHOCYTES ABSOLUTE AUTO 0.92 K/mm3 (0.84-5.20); LYMPHOCYTES PERCENT AUTO 29 % (21-46); MONOCYTES ABSOLUTE AUTO 0.38 K/mm3 (0.16-1.47); MONOCYTES PERCENT AUTO 12 % (4-13); Mean Corpuscular HGB 31.6 pg (26.0-34.0); Mean Corpuscular HGB Conc 33.6 g/dL (31.5-36.5); Mean Corpuscular Volume 94 fL (80-100); Mean Platelet Volume 10.4 fL (9.1-12.4); NEUTROPHILS ABSOLUTE AUTO 1.89 K/mm3 (1.96-9.15); NEUTROPHILS PERCENT AUTO 59 % (41-73); Platelet Count 164 K/mm3 (150-400); RDW Coefficient Variation 16.7 % (11.7-14.2); RDW Standard Deviation 57.4 fL (35.1-46.3); White Blood Cell Count 3.23 K/mm3 (4.00-11.30)
[2021-11-25 19:55] LABS: Albumin, Blood 2.5 g/dL (3.4-5.0); Albumin/Globulin Ratio 0.6 (0.8-1.8); Bilirubin, Total 0.7 mg/dL (0.1-1.0); Bun/Creatinine Ratio 12.1 (12.0-20.0); Calcium, Blood 7.5 mg/dL (8.5-10.1); Creatinine, Blood 3.14 mg/dL (0.40-1.00); Potassium, Blood 4.2 mmol/L (3.5-5.5); Total Protein, Blood 6.5 g/dL (6.4-8.2)
[2021-11-25 23:19] LABS: Source, Urine Catheter
[2021-11-25 23:21] LABS: Bilirubin, Urine Neg (Neg); Blood, Urine Neg (Neg); Glucose Qualitative, Urine Neg (Neg); Ketones, Urine 1+ (Neg); Leukocyte Esterase, Urine Neg (Neg); Nitrite, Urine Neg (Neg); Protein, Urine 1+ (Neg); Urobilinogen, Urine NORM (Normal)
[2021-11-25 23:31] LABS: Appearance, Urine Clear (Clear); Color, Urine Yellow (P-Yellow)
[2021-11-26 05:39] LABS: BASOPHILS ABSOLUTE AUTO 0.02 K/mm3 (0.00-0.23); BASOPHILS PERCENT AUTO 1 % (0-2); EOSINOPHILS ABSOLUTE AUTO 0.16 K/mm3 (0.00-0.68); EOSINOPHILS PERCENT AUTO 4 % (0-6); Hematocrit 30.5 % (33.0-51.0); Hemoglobin 10.5 g/dL (11.5-16.0); IMMATURE GRAN ABSOLUTE AUTO 0.05 K/mm3 (0.00-0.10); IMMATURE GRAN PERCENT AUTO 1 % (0-1); LYMPHOCYTES ABSOLUTE AUTO 1.19 K/mm3 (0.84-5.20); LYMPHOCYTES PERCENT AUTO 32 % (21-46); MONOCYTES ABSOLUTE AUTO 0.42 K/mm3 (0.16-1.47); MONOCYTES PERCENT AUTO 11 % (4-13); Mean Corpuscular HGB 31.9 pg (26.0-34.0); Mean Corpuscular HGB Conc 34.4 g/dL (31.5-36.5); Mean Corpuscular Volume 93 fL (80-100); Mean Platelet Volume 10.3 fL (9.1-12.4); NEUTROPHILS ABSOLUTE AUTO 1.94 K/mm3 (1.96-9.15); NEUTROPHILS PERCENT AUTO 51 % (41-73); Platelet Count 108 K/mm3 (150-400); RDW Coefficient Variation 16.7 % (11.7-14.2); RDW Standard Deviation 56.2 fL (35.1-46.3); Red Blood Cell Count 3.29 M/mm3 (3.80-5.20); White Blood Cell Count 3.78 K/mm3 (4.00-11.30)
[2021-11-26 06:16] LABS: Albumin, Blood 1.8 g/dL (3.4-5.0); Albumin/Globulin Ratio 0.5 (0.8-1.8); Bilirubin, Total 0.6 mg/dL (0.1-1.0); Bun/Creatinine Ratio 12.8 (12.0-20.0); Calcium, Blood 7.1 mg/dL (8.5-10.1); Creatinine, Blood 3.05 mg/dL (0.40-1.00); Globulin, Blood 3.3 g/dL (2.2-4.0); Total Protein, Blood 5.1 g/dL (6.4-8.2)
[2021-11-26 16:34] LABS: Influenza A, PCR NEGATIVE (NEGATIVE); Influenza B, PCR NEGATIVE (NEGATIVE); Resp Syncytial Virus, PCR NEGATIVE (NEGATIVE)
[2021-11-26 16:39] LABS: SARS-Cov-2 (COVID-19) PCR, MMC POSITIVE (NEGATIVE)
--- NOTE | 2021-11-26 19:48 | NUR ---
SHIFT SUMMARY: PT A/O X 3 ON ADMIT. PT WAS REPORTED ON TX TO FLOOR THAT HER COVID TEST WAS POSITIVE. PLACED IN ISOLATION PER PROTOCOL. DR. ARREDONDO NOTIFIED OF COVID DX. PLACED NEW ORDERS. DR. DODGE CONSULTED AND NOTIFIED OF CONSULT. REPORTED TO ONCOMING RN.
--- NOTE | 2021-11-27 00:20 | NUR ---
Patient having very soft lumpy liquid stools each time she voids. She states she has been having this problem intermittantly for quite a while. Will inform MD and see if he wants stool sent to lab
[2021-11-27 05:25] LABS: BASOPHILS ABSOLUTE AUTO 0.01 K/mm3 (0.00-0.23); BASOPHILS PERCENT AUTO 0 % (0-2); EOSINOPHILS ABSOLUTE AUTO 0.04 K/mm3 (0.00-0.68); EOSINOPHILS PERCENT AUTO 2 % (0-6); Hematocrit 26.5 % (33.0-51.0); IMMATURE GRAN ABSOLUTE AUTO 0.01 K/mm3 (0.00-0.10); IMMATURE GRAN PERCENT AUTO 0 % (0-1); LYMPHOCYTES ABSOLUTE AUTO 0.62 K/mm3 (0.84-5.20); LYMPHOCYTES PERCENT AUTO 26 % (21-46); MONOCYTES ABSOLUTE AUTO 0.22 K/mm3 (0.16-1.47); MONOCYTES PERCENT AUTO 9 % (4-13); Mean Corpuscular HGB 32.1 pg (26.0-34.0); Mean Corpuscular Volume 95 fL (80-100); Mean Platelet Volume 10.4 fL (9.1-12.4); NEUTROPHILS PERCENT AUTO 63 % (41-73); Platelet Count 101 K/mm3 (150-400); RDW Coefficient Variation 17.1 % (11.7-14.2); RDW Standard Deviation 59.4 fL (35.1-46.3)
--- NOTE | 2021-11-27 05:50 | NUR ---
PATIENT AWAKE MOST OF NIGHT WATCHING TV..VERY PAINFUL, ESPECIALLY LEFT HIP AND ARM WHEN BEING REPOSITIONED OR CHANGED. IN ADDITION TO HER REGULAR SCHEDULED OXYCODONE, PRISCILLA RECEIVED 3 PRN DOSES OF 0.25MCG FENTANYL WHICH DID SEEM TO HELP FOR BRIEF PERIODS OF TIME. ALSO, GI PANEL SENT DUE TO MULTIPLE LIQUID STOOLS OVER THE EVENING. RESULTS ARE STILL PENDING. PATIENT IS AT THIS TIME BEDBOUND DUE TO THE FALL SHE TOOK AT HOME PRIOR TO COMING TO THE ER. BEFORE THAT, SHE WAS INDEPENDENT AT HOME WITH HER FRONT WHEELED WALKER.
[2021-11-27 06:02] LABS: Anion Gap 11 mmol/L (6-16); Blood Urea Nitrogen 36 mg/dL (8-24); Bun/Creatinine Ratio 13.2 (12.0-20.0); CO2, Blood 23 mmol/L (21-32); Calcium, Blood 6.7 mg/dL (8.5-10.1); Chloride, Blood 101 mmol/L (98-108); Creatinine, Blood 2.72 mg/dL (0.40-1.00); Glomerular Filtration Rate 17 (60-); Glucose, Blood 77 mg/dL (70-99); Magnesium, Blood 1.7 mg/dL (1.6-2.4); Phosphorus, Blood 3.9 mg/dL (2.5-4.9); Potassium, Blood 3.7 mmol/L (3.5-5.5); Sodium, Blood 135 mmol/L (136-145)
[2021-11-27 06:03] LABS: Adenovirus F 40/41 Not Detected (NOT DETECT); Astrovirus Not Detected (NOT DETECT); Campylobacter Sp Not Detected (NOT DETECT); Cryptosporidium Not Detected (NOT DETECT); Cyclospora Cayetanensis Not Detected (NOT DETECT); E. Coli O157 Not Detected (NOT DETECT); Entamoeba Histolytica Not Detected (NOT DETECT); Enteroaggregative E. coli-EAEC Not Detected (NOT DETECT); Enteropathogenic E. coli-EPEC Not Detected (NOT DETECT); Enterotoxigenic E. coli-ETEC Not Detected (NOT DETECT); Giardia Lamblia Not Detected (NOT DETECT); Norovirus GI/GII Not Detected (NOT DETECT); Plesiomonas Shigelloides Not Detected (NOT DETECT); Rotavirus A Not Detected (NOT DETECT); Salmonella Sp Not Detected (NOT DETECT); Sapovirus Not Detected (NOT DETECT); Shiga Toxin-prod E. coli-STEC Not Detected (NOT DETECT); Shigella/Enteroin E. coli-EIEC Not Detected (NOT DETECT); Vibrio Cholerae Not Detected (NOT DETECT); Vibrio Sp Not Detected (NOT DETECT); Yersinia Enterocolitica Not Detected (NOT DETECT)
--- NOTE | 2021-11-27 18:47 | NUR ---
SHIFT SUMMARY: PT A/O X 4 ON BEDREST. [place], PLEASANT AND COOPERATIVE. PT HAS REMAINED ON RA, PRODUCTIVE COUGH WITH CLEAR SPUTUM. PT HAS HAD SEVERAL LOOSE JELLY LIKE BROWN STOOLS. PT UNABLE TO CONTROL BU KNOWS WHEN SHE HAS HAD A BM. PT TEMP SLIGHTLY ELEVATED BUT DID NOT REACH 100 DEGREES T/OUT THE DAY. PT EATING WELL. BLADDER SCAN RESULT WAS 242. PT HAD FEW WET ATTENDS T/OUT THE DAY. EDEMA IMPROVING IN BLE.
[2021-11-28 05:49] LABS: BASOPHILS ABSOLUTE AUTO 0.01 K/mm3 (0.00-0.23); BASOPHILS PERCENT AUTO 0 % (0-2); EOSINOPHILS ABSOLUTE AUTO 0.03 K/mm3 (0.00-0.68); EOSINOPHILS PERCENT AUTO 1 % (0-6); Hematocrit 26.8 % (33.0-51.0); Hemoglobin 8.9 g/dL (11.5-16.0); IMMATURE GRAN ABSOLUTE AUTO 0.01 K/mm3 (0.00-0.10); IMMATURE GRAN PERCENT AUTO 0 % (0-1); LYMPHOCYTES ABSOLUTE AUTO 0.88 K/mm3 (0.84-5.20); LYMPHOCYTES PERCENT AUTO 36 % (21-46); MONOCYTES ABSOLUTE AUTO 0.23 K/mm3 (0.16-1.47); MONOCYTES PERCENT AUTO 9 % (4-13); Mean Corpuscular HGB 31.4 pg (26.0-34.0); Mean Corpuscular HGB Conc 33.2 g/dL (31.5-36.5); Mean Corpuscular Volume 95 fL (80-100); Mean Platelet Volume 9.9 fL (9.1-12.4); NEUTROPHILS ABSOLUTE AUTO 1.29 K/mm3 (1.96-9.15); NEUTROPHILS PERCENT AUTO 53 % (41-73); Platelet Count 100 K/mm3 (150-400); RDW Standard Deviation 58.6 fL (35.1-46.3); Red Blood Cell Count 2.83 M/mm3 (3.80-5.20); White Blood Cell Count 2.45 K/mm3 (4.00-11.30)
--- NOTE | 2021-11-28 06:13 | NUR ---
SHIFT SUMMARY PATIENT ALERT AND ORIENTED. MEDICATED PER EMAR FOR PAIN. NO COMPLAINTS OF SHORTNESS OF BREATH. PATIENT HAD NO ACUTE ISSUES NOTED OVERNIGHT. BED IN LOWEST POSITION WITH WHEELS LOCKED AND ALARM ON. CALL LIGHT WITHIN REACH. REPORT GIVEN TO ONCOMING RN.
[2021-11-28 06:18] LABS: Albumin, Blood 1.8 g/dL (3.4-5.0); Anion Gap 11 mmol/L (6-16); Blood Urea Nitrogen 32 mg/dL (8-24); Bun/Creatinine Ratio 12.7 (12.0-20.0); CO2, Blood 24 mmol/L (21-32); Calcium, Blood 6.4 mg/dL (8.5-10.1); Chloride, Blood 99 mmol/L (98-108); Creatinine, Blood 2.52 mg/dL (0.40-1.00); Glomerular Filtration Rate 18 (60-); Glucose, Blood 90 mg/dL (70-99); Magnesium, Blood 1.4 mg/dL (1.6-2.4); Phosphorus, Blood 3.6 mg/dL (2.5-4.9); Potassium, Blood 3.3 mmol/L (3.5-5.5); Sodium, Blood 134 mmol/L (136-145)
--- NOTE | 2021-11-28 17:40 | NUR ---
SHIFT SUMMARY PATIENT IS ALERT AND ORIENTATED X3-4. PATIENT IS BEDREST. PATIENT HAS HAD NO COMPLAINTS OF NAUSEA, SOB OR VOMITTING THIS SHIFT. PATIENT HAS SCHEDULED PAIN MEDICATIONS AND DR HAS INCREASED THE DOSAGE Q6. PATIENT HAS HAD NO ACUTE EVENTS THIS SHIFT. VITAL SIGNS REVIEWED. BED IN LOCKED AND LOWEST POSITION. CALL LIGHT IN PLACE. CALL LIGHT IN REACH. WILL MONITOR UNTIL SHIFT CHANGE.
[2021-11-29 05:51] LABS: Albumin, Blood 1.6 g/dL (3.4-5.0); Anion Gap 9 mmol/L (6-16); Blood Urea Nitrogen 34 mg/dL (8-24); Bun/Creatinine Ratio 13.4 (12.0-20.0); CO2, Blood 26 mmol/L (21-32); Calcium, Blood 6.3 mg/dL (8.5-10.1); Chloride, Blood 98 mmol/L (98-108); Creatinine, Blood 2.54 mg/dL (0.40-1.00); Glomerular Filtration Rate 18 (60-); Glucose, Blood 89 mg/dL (70-99); Magnesium, Blood 1.6 mg/dL (1.6-2.4); Phosphorus, Blood 3.2 mg/dL (2.5-4.9); Potassium, Blood 3.2 mmol/L (3.5-5.5); Sodium, Blood 133 mmol/L (136-145)
[2021-11-29 05:57] LABS: Hematocrit 25.4 % (33.0-51.0); Hemoglobin 8.6 g/dL (11.5-16.0)
--- NOTE | 2021-11-29 06:36 | NUR ---
20MEQ OF POTASSIUM ADMINISTERED PO ORDERED. PT TOLERATED WELL. DR. DODGE WAS ALSO AT BEDSIDE.
--- NOTE | 2021-11-29 06:40 | NUR ---
SHIFT SUMMARY ASSUMED CARE AT 1900. NO ACUTE EVENTS OVERNIGHT. PT REMAINS ON ENHANCED ISOLATION DUE TO +COVID. PT AAOX3, MILDLY FORGETFUL. [place]. REMAINS ON ROOM AIR, PORDUCTIVE COUGH NOTED. RUE AV FISTULA +BRUITS/+THRILLS. LUE POWERGLISE DRESSING INTACT, SOMEWHAT DIFFICULT TO FLUSH AND NO BLOOD RETURN. BLE EDEMA 2+. PT MEDICATED FOR PAIN SCHEDULED. NO PRN PAIN MEDS REQUESTED DURING THE SHIFT. NO COMPLAINTS VOICED. BED IS IN LOW POSITION WITH THE CALL LIGHT WITHIN EASY REACH. WILL CONTINUE TO MONITOR.
[2021-11-29 16:44] LABS: BASOPHILS ABSOLUTE AUTO 0.01 K/mm3 (0.00-0.23); BASOPHILS PERCENT AUTO 0 % (0-2); EOSINOPHILS ABSOLUTE AUTO 0.07 K/mm3 (0.00-0.68); EOSINOPHILS PERCENT AUTO 2 % (0-6); Hematocrit 27.9 % (33.0-51.0); Hemoglobin 9.4 g/dL (11.5-16.0); IMMATURE GRAN ABSOLUTE AUTO 0.01 K/mm3 (0.00-0.10); IMMATURE GRAN PERCENT AUTO 0 % (0-1); LYMPHOCYTES ABSOLUTE AUTO 0.83 K/mm3 (0.84-5.20); LYMPHOCYTES PERCENT AUTO 23 % (21-46); MONOCYTES ABSOLUTE AUTO 0.38 K/mm3 (0.16-1.47); MONOCYTES PERCENT AUTO 10 % (4-13); Mean Corpuscular HGB 31.9 pg (26.0-34.0); Mean Corpuscular HGB Conc 33.7 g/dL (31.5-36.5); Mean Corpuscular Volume 95 fL (80-100); Mean Platelet Volume 10.3 fL (9.1-12.4); NEUTROPHILS ABSOLUTE AUTO 2.38 K/mm3 (1.96-9.15); NEUTROPHILS PERCENT AUTO 65 % (41-73); Platelet Count 143 K/mm3 (150-400); RDW Standard Deviation 58.4 fL (35.1-46.3); Red Blood Cell Count 2.95 M/mm3 (3.80-5.20); White Blood Cell Count 3.68 K/mm3 (4.00-11.30)
[2021-11-29 17:10] LABS: Bun/Creatinine Ratio 12.7 (12.0-20.0); Calcium, Blood 6.5 mg/dL (8.5-10.1); Creatinine, Blood 2.59 mg/dL (0.40-1.00); Potassium, Blood 3.9 mmol/L (3.5-5.5)
[2021-11-29 17:19] LABS: Appearance, Urine Clear (Clear); Bilirubin, Urine Neg (Neg); Blood, Urine Neg (Neg); Color, Urine Yellow (P-Yellow); Glucose Qualitative, Urine Neg (Neg); Ketones, Urine Neg (Neg); Leukocyte Esterase, Urine Neg (Neg); Nitrite, Urine Neg (Neg); Protein, Urine Neg (Neg); Urobilinogen, Urine NORM (Normal); pH, Urine 6.5 (5.0-8.0)
--- NOTE | 2021-11-29 20:26 | NUR ---
SUMM- PT A/O X4. NINILCHIK. UNABLE TO GET OUT OF BED RELATED TO SEVERE PAIN IN LOW BACK AND LEGS. ATTENDS INCONT B/B- RED YEASTY RASH STARTED ON MICONAZOLE. DR DODGE STARTED BUMEX THIS PM, DR CHUNG OK'D RN ORDER FOR LISS TO OBTAIN ACCURATE I/O AND TO PROTECT SKIN FROM FURTHER BREAKDOWN. SENT UA- NEGATIVE FOR [id number]. BP LOW SEEMS NORM. AFIBRILE, PT IS ALWAYS COLD AND HAS A LOT OF COVERS. PT HAS CX IN BASES OF LUNGS AND ENTIRE L ANT UPPER. EDEMA TO LE +2 GEN. NAUSEA THIS AM, MEDICATED WITH ZOFRAN WITH GOOD EFFECT. PAIN CONTROLLED WITH ROUTINE SCHEDULE PER MD. SATS 92% ROOM AIR. ORDER TO SET UP CONT PULSE OX BUT NOT COMPLETED, WILL RELAY INFO FOR NOC RN TO SET THIS UP
--- NOTE | 2021-11-29 23:35 | NUR ---
AT ABOUT 0, UNSUCCESSFUL LEIJA CATHETER INSERTION. CHARGE NURSE, SERENE GERONIMO RN NOTIFIED. SHE STATES THAT SHE WILL ATTEMPT.
[2021-11-29 23:52] LABS: Source, Urine Catheter
[2021-11-30 00:39] LABS: Appearance, Urine Clear (Clear); Bilirubin, Urine Neg (Neg); Blood, Urine Neg (Neg); Color, Urine Yellow (P-Yellow); Glucose Qualitative, Urine Neg (Neg); Ketones, Urine Neg (Neg); Leukocyte Esterase, Urine 1+ (Neg); Nitrite, Urine Neg (Neg); Protein, Urine Neg (Neg); Urobilinogen, Urine NORM (Normal)
[2021-11-30 01:12] LABS: Bacteria Many /hpf; Red Blood Cells, Urine 0-2 /hpf (0-2); Squamous Epithelial Cells Few /hpf (Few); Yeast/Fungi Urine Mod /hpf
[2021-11-30 05:52] LABS: Hematocrit 26.5 % (33.0-51.0); Hemoglobin 8.7 g/dL (11.5-16.0)
--- NOTE | 2021-11-30 05:58 | NUR ---
SHIFT SUMMARY ASSUMED CARE AT 1900. REMAINS ON ENHANCED ISOLATION DUE TO +COVID. REMAINS ON CONTINUOUS PULSE OXIMETRY, O2 SATS >92% ON ROOM AIR.+PROD COUGH. I WAS UNSUCCESSFUL IN INSERTING A LEIJA CATHETER AT ABOUT 2129. CHARGE NURSE, SERENE GERONIMO RN SUCCESSFULLY INSERTED A LEIJA CATHETER AT 2344-SEE DOCUMENTATION. PT WITH RUE AV FISTULA +BRUITS/+THRILLS. LUE POWERGLIDE FLUSHES EASILY BUT NO BLOOD RETURN. MICONAZORB ANTIFUNGAL POWDER APPLIED ORDERED. PT TURNED AND REPOSITIONED. SCHEDULED MEDICATIONS ADMINISTERED. BED IN LOW POSITION WITH THE CALL LIGHT WITHIN EASY REACH. BED ALARM ACTIVATED. WILL CONTINUE TO MONITOR.
[2021-11-30 06:18] LABS: Magnesium, Blood 1.6 mg/dL (1.6-2.4)
[2021-11-30 06:19] LABS: Albumin, Blood 1.6 g/dL (3.4-5.0); Anion Gap 9 mmol/L (6-16); Blood Urea Nitrogen 34 mg/dL (8-24); Bun/Creatinine Ratio 13.2 (12.0-20.0); CO2, Blood 26 mmol/L (21-32); Calcium, Blood 6.1 mg/dL (8.5-10.1); Chloride, Blood 96 mmol/L (98-108); Creatinine, Blood 2.57 mg/dL (0.40-1.00); Glomerular Filtration Rate 18 (60-); Glucose, Blood 89 mg/dL (70-99); Phosphorus, Blood 2.7 mg/dL (2.5-4.9); Potassium, Blood 3.7 mmol/L (3.5-5.5); Sodium, Blood 131 mmol/L (136-145)
--- NOTE | 2021-11-30 17:08 | NUR ---
DAY SHIFT SUMMARY 86YR OLD FEMALE, QUIET WITH FLAT AFFECT. C/O BACK PAIN WITH SCHEDULED PAIN MEDICATIONS, MEDICATED PER EMAR. LISS IN PLACE, PATENT, DRAINING BY GRAVITY. PT ON RA. CALL LIGHT WITHIN REACH OF PT. NO CHANGES WITH PT THIS SHIFT
--- NOTE | 2021-11-30 22:11 | NUR ---
HOSPITALIST, DR. NUR NOTIFIED ABOUT PT'S ASYMPTOMATIC LOW BP, RECOMMENDED THAT I CALL DR. DODGE TO NOTIFY AND SEEK ORDERS. DR. DODGE CONTACTED AND NOTIFIED OF PT'S VITALS AND CONDITION. NEW ORDERS RECEIVED TO START MIDODRINE 2.5MG TID, FIRST DOSE NOW WITH PARAMETERS TO HOLD IF SBP GREATER THAN 130; CHANGE PARAMETERS ON CLONIDINE 0.1MG QHS TO HOLD IF SBP LESS THAN 130; ECHO TO RULE OUT PERICARDIAL EFFUSION. WILL CONTINUE TO MONITOR.
--- NOTE | 2021-12-01 05:21 | NUR ---
PT BP THIS MORNING 79/51, HR 88. PT ASYMPTOMATIC. DR. DODGE NOTIFIED. NEW ORDERS RECEIVED. PT WITH RUE AV FISTULA. MANAGEMENT TRAINEE UNKNOWINGLY KALLI BLOOD FROM PTS RIGHT HAND BUT DISGARDED THAT BLOOD SPECIMEN AND OBTAINED ONE FROM THE LUE. REQUESTED, ANOTHER SIGN STATING NOT TO DRAW BLOOD (OR TAKE BP) FROM RUE WAS PLACED ON DOOE AN EXTRA PRECAUTION. NO ADVERSE EFFECTS NOTED AT THIS TIME.
[2021-12-01 05:55] LABS: Hemoglobin 8.5 g/dL (11.5-16.0)
--- NOTE | 2021-12-01 06:21 | NUR ---
AT ABOUT 0540, CALL PLACED TO PHARMACY REGARDING MIDODRINE VERIFICATION. CLINICAL UNIT COORDINATOR EXPLAINED THAT THE PHARMACIST WAS ON ANOTHER CALL BUT THE MESSAGE WOULD BE DELIVERED. AT 0617, PHARMACIST CALLED SEEKING CLARFICATION ABOUT THE FREQUENCY OF MIDODRINE ORDER. I EXPLAINED THAT DR. DODGE ORDERED IT THREE TIMES A DAY, FIRST DOSE NOW. THE PHARMACIST MENTIONED ITS SCHEDULING RELATED TO THE NIGHT DOSE. I EXPLAINED THAT I DID NOT KNOW AND THE PHARMACIST, JEFFRY, STATED THAT HE WOULD CALL AND CLARIFY ON HIS OWN. DR. DODGE ON [facility] FLOOR AT 0625, AND NOTIFIED AND HE STATED THAT HE WANTS THE MIDODRINE PREVIOUSLY STATED. I CALLED THE PHARMACIST, JEFFRY, AND MADE HIM AWARE. I AM STILL AWAITING AVAILABILITY OF MIDODRINE TO ADMINISTER. PT REMAINS ASYMPTOMATIC.
[2021-12-01 06:40] LABS: Albumin, Blood 1.5 g/dL (3.4-5.0); Anion Gap 12 mmol/L (6-16); Blood Urea Nitrogen 36 mg/dL (8-24); Bun/Creatinine Ratio 13.8 (12.0-20.0); CO2, Blood 26 mmol/L (21-32); Calcium, Blood 6.5 mg/dL (8.5-10.1); Chloride, Blood 96 mmol/L (98-108); Creatinine, Blood 2.61 mg/dL (0.40-1.00); Glomerular Filtration Rate 17 (60-); Glucose, Blood 90 mg/dL (70-99); Phosphorus, Blood 3.1 mg/dL (2.5-4.9); Potassium, Blood 3.8 mmol/L (3.5-5.5); Sodium, Blood 134 mmol/L (136-145)
--- NOTE | 2021-12-01 07:32 | NUR ---
SHIFT SUMMARY ASSUMED CARE AT 1900. PT REMAINS ON ISOLATION FOR +COVID. PT WITH 2 EPISODES OF ASYMPTOMATIC HYPOTENSION. DR. DODGE NOTIFIED AND NEW ORDERS RECEIVED AND CARRIED OUT. PT UPDATED ON PLAN OF CARE. ONCOMING NURSE TO MONITOR EFFECTIVENESS OF MIDODRINE 5MG DOSE GIVEN THIS MORNING. RUE AV FISTULA +BRUITS/ +THRILLS. LUE IV DRESSING INTACT AND FLUSES SLUGGISHLY. FOLET PATENT AND DRAINING URINE VIA GRAVITY. BED IN LOW POSITION WITH THE CALL LIGHT WITHIN EASY REACH. SCHEDULED PAIN MED NOT GIVEN 2/2 HYPOTENSION. ON 3L O2 VIA NC, CONTINUOUS PULSE OX WITH SATS 93-96%.
[2021-12-01 13:09] LABS: BASOPHILS ABSOLUTE AUTO 0.01 K/mm3 (0.00-0.23); BASOPHILS PERCENT AUTO 0 % (0-2); EOSINOPHILS PERCENT AUTO 0 % (0-6); Hematocrit 25.6 % (33.0-51.0); Hemoglobin 8.6 g/dL (11.5-16.0); IMMATURE GRAN ABSOLUTE AUTO 0.02 K/mm3 (0.00-0.10); IMMATURE GRAN PERCENT AUTO 1 % (0-1); LYMPHOCYTES ABSOLUTE AUTO 0.54 K/mm3 (0.84-5.20); LYMPHOCYTES PERCENT AUTO 15 % (21-46); MONOCYTES ABSOLUTE AUTO 0.38 K/mm3 (0.16-1.47); MONOCYTES PERCENT AUTO 11 % (4-13); Mean Corpuscular HGB Conc 33.6 g/dL (31.5-36.5); Mean Corpuscular Volume 95 fL (80-100); NEUTROPHILS ABSOLUTE AUTO 2.66 K/mm3 (1.96-9.15); NEUTROPHILS PERCENT AUTO 74 % (41-73); Platelet Count 207 K/mm3 (150-400); RDW Coefficient Variation 17.2 % (11.7-14.2); RDW Standard Deviation 59.6 fL (35.1-46.3); Red Blood Cell Count 2.69 M/mm3 (3.80-5.20); White Blood Cell Count 3.61 K/mm3 (4.00-11.30)
--- NOTE | 2021-12-01 17:30 | NUR ---
DAY SHIFT SUMMARY 86 YEAR OLD FEMALE PT, RECEIVED VISIT FROM DAUGHTER TODAY. ECHO DONE TODAY. PT STARTED ON DECADRON FOR COVID, TOLERATING WELL AT THIS TIME. LEIJA INTACT,PATENT, AND DRAINING BY GRAVITY. CALL LIGHT WITHIN REACH AND PT CALLS APPROPRIATELY. RASH NOTED TO MIRYAM/GROIN AREA, MEDICATED PER EMAR. C/O BACK PAIN, MEDICATED PER EMAR. [facility]
[2021-12-02 05:04] LABS: BASOPHILS ABSOLUTE AUTO 0.01 K/mm3 (0.00-0.23); BASOPHILS PERCENT AUTO 0 % (0-2); EOSINOPHILS PERCENT AUTO 0 % (0-6); Hematocrit 30.5 % (33.0-51.0); Hemoglobin 10.3 g/dL (11.5-16.0); IMMATURE GRAN ABSOLUTE AUTO 0.07 K/mm3 (0.00-0.10); IMMATURE GRAN PERCENT AUTO 2 % (0-1); LYMPHOCYTES ABSOLUTE AUTO 0.43 K/mm3 (0.84-5.20); LYMPHOCYTES PERCENT AUTO 13 % (21-46); MONOCYTES ABSOLUTE AUTO 0.38 K/mm3 (0.16-1.47); MONOCYTES PERCENT AUTO 11 % (4-13); Mean Corpuscular HGB Conc 33.8 g/dL (31.5-36.5); Mean Corpuscular Volume 95 fL (80-100); NEUTROPHILS ABSOLUTE AUTO 2.43 K/mm3 (1.96-9.15); NEUTROPHILS PERCENT AUTO 73 % (41-73); Platelet Count 249 K/mm3 (150-400); RDW Coefficient Variation 17.1 % (11.7-14.2); RDW Standard Deviation 59.2 fL (35.1-46.3); Red Blood Cell Count 3.22 M/mm3 (3.80-5.20); White Blood Cell Count 3.32 K/mm3 (4.00-11.30)
[2021-12-02 05:32] LABS: Albumin, Blood 1.7 g/dL (3.4-5.0); Anion Gap 9 mmol/L (6-16); Blood Urea Nitrogen 43 mg/dL (8-24); Bun/Creatinine Ratio 16.3 (12.0-20.0); CO2, Blood 28 mmol/L (21-32); Calcium, Blood 6.6 mg/dL (8.5-10.1); Chloride, Blood 96 mmol/L (98-108); Creatinine, Blood 2.64 mg/dL (0.40-1.00); Glomerular Filtration Rate 17 (60-); Glucose, Blood 113 mg/dL (70-99); Magnesium, Blood 1.7 mg/dL (1.6-2.4); Phosphorus, Blood 3.7 mg/dL (2.5-4.9); Potassium, Blood 4.1 mmol/L (3.5-5.5); Sodium, Blood 133 mmol/L (136-145)
--- NOTE | 2021-12-02 06:50 | NUR ---
SHIFT SUMMARY ASSUMED CARE AT 1900. NO ACUTE EVENTS OVERNIGHT. PT REMAINS ON ENHANCED ISILATION FOR +COVID. ON 3L ON VIA NC & CONTINUOUS PULSE OX, O2 SATS >92%. SCHEDULED MEDICATIONS ADMINISTERED. LUE POWERGLIDE DRESSING INTACT. RUE AV FISTULA +BRUITS/+THRILLS. LEIJA CATHETER PATENT, DRAINING URINE VIA GRAVITY. ON CARDIAC TELE, BOX # [id number], SINUS RHYTHM W/ 1ST DEGREE AV BLOCK, HR 60s. TURNED AND REPOSITIONED. BP WNL OVERNIGHT. BED IN LOW POSITION WITH THE CALL LIGHT WITHIN EASY REACH. WILL CONTINUE TO MONITOR. PT'S FAMILY MEMBER DID CALL OVERNIGHT BUT I DIDNOT HAVE A CHANCE TO CALL BACK. WILL PASS IT ON TO ONCOMING NURSE.
[2021-12-03 05:06] LABS: BASOPHILS ABSOLUTE AUTO 0.01 K/mm3 (0.00-0.23); BASOPHILS PERCENT AUTO 0 % (0-2); EOSINOPHILS PERCENT AUTO 0 % (0-6); Hematocrit 29.1 % (33.0-51.0); Hemoglobin 9.8 g/dL (11.5-16.0); IMMATURE GRAN ABSOLUTE AUTO 0.11 K/mm3 (0.00-0.10); IMMATURE GRAN PERCENT AUTO 1 % (0-1); LYMPHOCYTES ABSOLUTE AUTO 0.61 K/mm3 (0.84-5.20); LYMPHOCYTES PERCENT AUTO 7 % (21-46); MONOCYTES PERCENT AUTO 9 % (4-13); Mean Corpuscular HGB 31.6 pg (26.0-34.0); Mean Corpuscular HGB Conc 33.7 g/dL (31.5-36.5); Mean Corpuscular Volume 94 fL (80-100); Mean Platelet Volume 9.7 fL (9.1-12.4); NEUTROPHILS ABSOLUTE AUTO 7.84 K/mm3 (1.96-9.15); NEUTROPHILS PERCENT AUTO 84 % (41-73); Platelet Count 336 K/mm3 (150-400); RDW Standard Deviation 58.4 fL (35.1-46.3); White Blood Cell Count 9.37 K/mm3 (4.00-11.30)
[2021-12-03 05:23] LABS: Albumin, Blood 1.7 g/dL (3.4-5.0); Anion Gap 11 mmol/L (6-16); Blood Urea Nitrogen 49 mg/dL (8-24); Bun/Creatinine Ratio 18.8 (12.0-20.0); CO2, Blood 24 mmol/L (21-32); Calcium, Blood 6.6 mg/dL (8.5-10.1); Chloride, Blood 98 mmol/L (98-108); Creatinine, Blood 2.61 mg/dL (0.40-1.00); Glomerular Filtration Rate 17 (60-); Glucose, Blood 90 mg/dL (70-99); Phosphorus, Blood 2.7 mg/dL (2.5-4.9); Sodium, Blood 133 mmol/L (136-145)
--- NOTE | 2021-12-03 06:25 | NUR ---
SHIFT SUMMARY ASSUMED CARE AT 1900. NO ACUTE EVENTS. PT STARTED SHIFT ON 4L O2 VIA NC, O2 SATS ABOUT 89-91%. PT HAD ONE EPISODE OF CONFUSION WHERE SHE REMOVED HER NASAL CANNULA AND O2 SATS WENT TO 78-80% BUT ONCE NASAL CANNULA WAS REAPPLIED, O2 SATS WENT BACK TO 89-91%/ PT REMINDED NOT TO REMOVE NASAL CANNULA AND DID NOT HAVE ANOTHER EPISODE. PT C/O BACK PAIN THIS MORNING, GIVEN PRN TYLENOL. RUE FISTULA +BRUITS/+THRILLS. LEIJA CATHETER PATENT, DRAINING URINE VIA GRAVITY. PT TURNED AND REPOSITIONED. REMAINS ON ENHANCED ISOLATION FOR +COVID. BED IS IN LOW POSITION WITH THE CALL LIGHT WITHIN EASY REACH. BED ALARM REMAINS ACTIVATED. I DISCUSSED PT'S O2 SATS AND MILD INCREASE IN O2 NEEDS WITH CASH PERSON, EVERETT AND HE ADDED A HUMIDIFIER. PT DENIES SOB. WILL CONTINUE TO MONITOR.
--- NOTE | 2021-12-03 08:00 | NUR ---
pt laying in bed awake, a/ox2, very [place], forgetful, cooperative with care, follows commands well, lungs are dim, fine crackles in the bases, resp even and mildly labored at rest, sat monitor says in mid 80's, currently on 7 liters via n/c, called RT for a high flow cannula, repositioned pt, and changed her briefs, she is complaining of bad back pain that is traveling down her right leg, will medicate for pain, hrr, bounding, no edema noted, ppp faint, cap refill <3 sec, vs stable, afebrile, iv power glide to nan, site is clear and patent, sluggish, btx4, abd flat soft notnender, abad cath draining clear yellow urine, skin slightly pink in isaac area, has briefs in place but will leave open, maew, general weakness, lida, call light in reach. poor appetite.
--- NOTE | 2021-12-03 18:24 | NUR ---
pt has been sitting on the side of the bed moaning saying oh God help me, isn't really connecting to have a conversation, is too focused on her leg pain, she has a kpad for comfort, but is still in distress, gave a one time dose of fentanyl with little relief, was called again and recieved orders for klonipin, this was given, she is refusing to eat food, but is drinking water, o2 demand is at 13 liters high flow cannula now. call light in reach.
--- NOTE | 2021-12-03 21:30 | NUR ---
TRANSFERRED PT PER BED TO RM 346 TO ALLOW CLOSER OBSERVATION.REPORT GIVEN TO EULALIA JOSUE RN.
--- NOTE | 2021-12-04 04:44 | NUR ---
SHIFT SUMMARY 86 YR f ADMITTED ON 11/25/21 FOR WEAKNESS, BACK PAIN, AND SHE WAS DECONDITIONED. PT MOVED TO CURRENT ROOM FOR CAMERA SURVEILANCE AFTER MULTIPLE ATTEMPTS TO REMOVE HER O2, WHICH RESULTED IN DESATS. SHE C/O LEG PAIN AND WAS GIVEN ALLYN PER EMAR AND SLEPT WELL FOR MOST OF THE NIGHT AFTER THAT.
[2021-12-04 04:56] LABS: Hemoglobin 9.3 g/dL (11.5-16.0)
[2021-12-04 06:20] LABS: Albumin, Blood 2.1 g/dL (3.4-5.0); Anion Gap 13 mmol/L (6-16); Blood Urea Nitrogen 58 mg/dL (8-24); Bun/Creatinine Ratio 18.8 (12.0-20.0); CO2, Blood 25 mmol/L (21-32); Calcium, Blood 6.9 mg/dL (8.5-10.1); Chloride, Blood 98 mmol/L (98-108); Creatinine, Blood 3.09 mg/dL (0.40-1.00); Glomerular Filtration Rate 14 (60-); Glucose, Blood 94 mg/dL (70-99); Magnesium, Blood 1.9 mg/dL (1.6-2.4); Phosphorus, Blood 2.6 mg/dL (2.5-4.9); Potassium, Blood 4.2 mmol/L (3.5-5.5); Sodium, Blood 136 mmol/L (136-145)
--- NOTE | 2021-12-04 17:09 | NUR ---
PT IS ALERT, ORIENTD TO SELF AND FAMILY. THE PT IS UP WITH MODERATE ASSIST TO THE CHAIR. THE PT CONTINUES TO NEED HIGH YUE O2 @ 11L/MIN O2 SAT'S ARE 89-92%. THE PT WAS MEDICATED FOR LEG AND LOW BACK PAIN THIS AM AND THIS AFTERNOON SCHEDULED. THE PT WAS ENCOURAGED TO DRINK WATER PT HAS A SMALL AMOUNT OF URINE OUTPUT LEIJA CATHETER REMAINS IN PLACE AND DRAINING. PTS DAUGHTER WAS IN TO SEE HER THIS AFTERNOON. BED ALRM ON, CALL LIGHT IN REACH, WILL CONTINUE TO MONITOR AND ASSESS FOR CHANGES
--- NOTE | 2021-12-04 18:22 | NUR ---
pt arrived to room 344 from room 330 @ 1810 via bed, pt was oriented to the call system. pt is in a krissy vest. pt was taken into the bathroom to void i person assist unsteady on his feet. appears to be breathing easily on ra. bed alarm mental retardation nurse light in reach
[2021-12-05 05:17] LABS: Hematocrit 27.2 % (33.0-51.0); Hemoglobin 9.1 g/dL (11.5-16.0)
[2021-12-05 06:11] LABS: Albumin, Blood 1.9 g/dL (3.4-5.0); Anion Gap 10 mmol/L (6-16); Blood Urea Nitrogen 63 mg/dL (8-24); Bun/Creatinine Ratio 19.7 (12.0-20.0); CO2, Blood 27 mmol/L (21-32); Calcium, Blood 7.3 mg/dL (8.5-10.1); Chloride, Blood 99 mmol/L (98-108); Glomerular Filtration Rate 14 (60-); Glucose, Blood 107 mg/dL (70-99); Magnesium, Blood 2.2 mg/dL (1.6-2.4); Phosphorus, Blood 2.7 mg/dL (2.5-4.9); Potassium, Blood 5.1 mmol/L (3.5-5.5); Sodium, Blood 136 mmol/L (136-145)
--- NOTE | 2021-12-05 17:53 | NUR ---
PT IS ALERT ORIENTED TO SELF. THE PT HAS BEEN MORE SOMMULANT/DROWSY TODAY COMPARED TO YESTERDAY. PT HAS BEEN REFUSING MEALS. PT DIRNKS FLUIDS ONLY WHEN OFFERED. THE PT CONTINUES TO NEED OXYGEN AT 10L/MIN SO FAR THIS SHIFT O2 SAT'S > 90%, PT' HEELS FLOATED TODAY DUE TO REDNESS. PT WAS MEDICATED FOR PAIN THIS AM AND THIS EVENING . HER AFTERNOON SCHEDULED DOSE WAS HELD DUE TO THE PT'S DROWSINESS. THE PT SEEMS TO BE MORE ALERT THIS EVENIG COMPRED TO THIS AM. BED ALARM ON, CALL LIGHT IN REACH. THE PTS DAUGHTER WAS IN TO SEE HER THIS AFTERNOON
--- NOTE | 2021-12-06 04:35 | NUR ---
SHIFT SUMMARY PT VERY SLEEPY THIS EVENING. WAKES WHEN SPOKEN TO BUT QUICKLY FALLS BACK ASLEEP. WITH ASSESSMENT PT DENIED PAIN AND WAS LETHARGIC SO EVENING SCHEDULED PAIN MEDICATION WAS HELD. TITRATED O2 DOWN TO 9 L FROM 11 L VIA HIGH FLOW NASAL CANNULA. O2 SATS IN THE LOW TO MID 90'S. LEIJA CATHETER PATENT AND DRAINING. SOME REDNESS TO MIRYAM AREA. ANTIFUNGAL POWDER APPLIED. MEPILEX INTACT ON COCCYX. PT SLEPT THE ENTIRE SHIFT WHEN NOT BEING WOKEN BY STAFF. VITAL SIGNS STABLE. WILL CONTINUE TO MONITOR.
[2021-12-06 06:15] LABS: Hematocrit 29.7 % (33.0-51.0); Hemoglobin 9.6 g/dL (11.5-16.0)
--- NOTE | 2021-12-06 06:16 | NUR ---
0530 WHILE SHORT FILLER BUNCH MACHINE OPERATOR WAS GETTING MORNING VITAL SIGNS PT WOKE FEELING SUDDENLY VERY SOB. YELLING, "SIT ME UP" AND STATING THAT SHE COULDN'T BREATH. HER HEART RATE SHOT UP INTO THE 130'S AND HER O2 SATS WENT DOWN INTO THE LOW 80'S. PT WAS ON 9 L O2 AT THIS TIME. TURNED PT'S O2 UP TO 15 L AND BOOSTED AND SAT PT UP. CALLED RT TO ROOM TO ASSESS. RT ADMINISTERED INHALER. PT TOOK APPROX 20 MINUTES TO RECOVER. O2 SATS IN THE MID 90'S. PT REMAINS ON THE 15 L.
[2021-12-06 06:56] LABS: Albumin, Blood 2.1 g/dL (3.4-5.0); Anion Gap 11 mmol/L (6-16); Blood Urea Nitrogen 66 mg/dL (8-24); Bun/Creatinine Ratio 20.6 (12.0-20.0); CO2, Blood 28 mmol/L (21-32); Calcium, Blood 7.8 mg/dL (8.5-10.1); Chloride, Blood 98 mmol/L (98-108); Creatinine, Blood 3.21 mg/dL (0.40-1.00); Glomerular Filtration Rate 14 (60-); Glucose, Blood 102 mg/dL (70-99); Magnesium, Blood 2.3 mg/dL (1.6-2.4); Phosphorus, Blood 2.5 mg/dL (2.5-4.9); Potassium, Blood 4.6 mmol/L (3.5-5.5); Sodium, Blood 137 mmol/L (136-145)
--- NOTE | 2021-12-06 12:39 | NUR ---
ORDERED ECHO. ONE DONE 12/01 WITH HIM ORDERING. CALL OUT TO HIM TO SEE IF HE WANTS ANOTHER ONE
--- NOTE | 2021-12-06 16:26 | NUR ---
ALERT TO SELF AND FAMILY. OXYGEN TURNED DOWN TO 13 L HIGH FLOW WITH SATS HIGH 90'S TO 100. WHEN GIVEN PILL IN APPLESAUCE STS "I CAN'T SWALLOW". TAKES WATER WITH MIRALAX IN IT AND STS SAME THING AND DRINKS ALL OF MIRALAX AND HAS FAINT COUGH AFTER ABOUT 5 MINUTES. SPEECH EVAL ORDERED. POOR APPETITE. STS" CAN'T EAT WITH ONLY ONE DENTURE" SO DIET CHANGED TO [facility] SOFT. DAUGHTER LATER INFORMS THIS RN THAT PATIENT HAS HAD ONE DENTURE ALL HER LIFE AND HAS EATTEN FINE. BRUISING T/O. MEPILEX TO BUTTOCK. PAIN PATCH TO BACK. MEPILEX TO HEELS AND FOAM BOOTIES. SM SCABS T/O. WILL CONTINUE TO TURN DOWN OXYGEN APPROPRIATE. LEIJA DRAINING TO GRAVITY
--- NOTE | 2021-12-07 04:15 | NUR ---
MALGORZATA RAY A&OX SELF, ANXIOUS, REMOVED NC AT START OF SHIFT AND IMMEDIATLEY FROPPED TO THE 70S. PATIENT HAS LITTLE RESERVE IT TOOK 30 MINUTES TO RECOVER. PATIENT HAS DIFFICULTY FOLLOWING COACHING DUE TO BEING HUGHES AND ANXIOUS. SATS HAVE REMAINED >92% ON 15L SINCE RECOVEREING. FAINT COARSENESS TO BASES. SKIN FRAGILE SCATTERED ECCYMOSIS AND SMALL SCABS. MEPILEX TO COCCYX AND BILATERAL HEELS. PATIENT REQUESTED FOAM BOOTIES BE REMOVED. HEELS FLOATED WITH PILLOW. LEIJA DRAINING YELLOW URINE.
[2021-12-07 05:52] LABS: Hematocrit 26.5 % (33.0-51.0); Hemoglobin 8.7 g/dL (11.5-16.0)
[2021-12-07 06:33] LABS: Albumin, Blood 1.8 g/dL (3.4-5.0); Anion Gap 6 mmol/L (6-16); Blood Urea Nitrogen 68 mg/dL (8-24); Bun/Creatinine Ratio 21.9 (12.0-20.0); CO2, Blood 32 mmol/L (21-32); Chloride, Blood 101 mmol/L (98-108); Glomerular Filtration Rate 14 (60-); Glucose, Blood 106 mg/dL (70-99); Magnesium, Blood 2.4 mg/dL (1.6-2.4); Phosphorus, Blood 2.3 mg/dL (2.5-4.9); Potassium, Blood 4.6 mmol/L (3.5-5.5); Sodium, Blood 139 mmol/L (136-145)
--- NOTE | 2021-12-07 15:57 | NUR ---
SHIFT SUMMARY PATIENT IS ALERT AND ORIENTED TO SELF ONLY. PATIENT HAD ONE ANXIOUS EVENT THIS MORNING WHERE PATIENT BECAME ANXIOUS AND O2 SATS DROPPED INTO THE 70S. PATIENT RECOVERED MODERATELY QUICKLY IN TEN MIN. PATIENT IS HARD OF HEARING. NO 0THER ACUTE EVENTS THIS SHIFT. PATIENT HAS HAD NO OTHER COMPLAINTS OF PAIN, NAUSEA, OR VOMITTING THIS SHIFT. VITAL SIGNS REVIEWED.
[2021-12-08 06:07] LABS: Hematocrit 29.5 % (33.0-51.0); Hemoglobin 9.6 g/dL (11.5-16.0)
[2021-12-08 06:54] LABS: Albumin, Blood 2.3 g/dL (3.4-5.0); Anion Gap 11 mmol/L (6-16); Blood Urea Nitrogen 72 mg/dL (8-24); Bun/Creatinine Ratio 23.5 (12.0-20.0); CO2, Blood 29 mmol/L (21-32); Calcium, Blood 8.1 mg/dL (8.5-10.1); Chloride, Blood 99 mmol/L (98-108); Creatinine, Blood 3.06 mg/dL (0.40-1.00); Glomerular Filtration Rate 15 (60-); Glucose, Blood 73 mg/dL (70-99); Magnesium, Blood 2.3 mg/dL (1.6-2.4); Phosphorus, Blood 2.4 mg/dL (2.5-4.9); Potassium, Blood 4.1 mmol/L (3.5-5.5); Sodium, Blood 139 mmol/L (136-145)
--- NOTE | 2021-12-08 18:33 | NUR ---
PT DROSWY, WAKENS EASILY, ON 15L HI-FLOW NC. NON-REBREATHER D/C BY RESPIRATORY. PT MAINTAINING SATS IN THE 90'S, DESATS IF SHE REMOVES CANULA. NO ACUTE CHANGES NOTED THIS SHIFT, WILL CONTINUE TO MONITOR AND REPORT TO ONCOMING RN
[2021-12-09 06:01] LABS: Hemoglobin 8.4 g/dL (11.5-16.0)
[2021-12-09 06:36] LABS: Anion Gap 8 mmol/L (6-16); Blood Urea Nitrogen 73 mg/dL (8-24); Bun/Creatinine Ratio 26.4 (12.0-20.0); CO2, Blood 31 mmol/L (21-32); Calcium, Blood 7.6 mg/dL (8.5-10.1); Chloride, Blood 100 mmol/L (98-108); Creatinine, Blood 2.77 mg/dL (0.40-1.00); Glomerular Filtration Rate 16 (60-); Glucose, Blood 100 mg/dL (70-99); Magnesium, Blood 2.3 mg/dL (1.6-2.4); Phosphorus, Blood 4.1 mg/dL (2.5-4.9); Potassium, Blood 4.2 mmol/L (3.5-5.5); Sodium, Blood 139 mmol/L (136-145)
--- NOTE | 2021-12-09 17:14 | NUR ---
SUMMARY PT RESTING QUIETLY IN BED, WAKES EASILY, PT HAS HAD A POOR APPETITE TODAY, ABLE TO FEED HERSELF WITH MIN ASSIST, PT MED PER EMAR FOR C/O PAIN, PT TURNED FREQUENTLY, REMAINS ON 15L NC, PT DESATS INTO THE 80'S WITH ANY ACTIVITY, WILL CONTINUE TO MONITOR
--- NOTE | 2021-12-10 03:41 | NUR ---
SHIFT SUMMARY PATIENT A&OX1-2, MULTIPLE EPISODES OF ANXIETY, REMOVING NASAL CANNULA, SCREAMING OUT FOR HELP. PATIENT REFUSED TO PLACE NC BACK IN HER NARES STATING IT WAS HURTING TO MUCH. NON REBREATHER MASK PLACED CONTINUED ON 15L. SATS > 94%. DESATS WITH EXERTION, REMOVAL OF OXYGEN DEVICE, OR WHEN SPEAKING MORE THEN ONE SENTANCE. PAIN TREATED PER EMAR. 2+ PITTING EDEMA NOTED TO BLE. SKIN FRAGILE, FOAM DRSSING TO BILATERAL HEELS AND COCCYX. MEDICATED POWDER TO GROIN.
[2021-12-10 06:16] LABS: Hematocrit 26.9 % (33.0-51.0); Hemoglobin 8.9 g/dL (11.5-16.0)
[2021-12-10 06:56] LABS: Albumin, Blood 2.3 g/dL (3.4-5.0); Anion Gap 7 mmol/L (6-16); Blood Urea Nitrogen 76 mg/dL (8-24); Bun/Creatinine Ratio 27.4 (12.0-20.0); CO2, Blood 32 mmol/L (21-32); Calcium, Blood 8.8 mg/dL (8.5-10.1); Chloride, Blood 101 mmol/L (98-108); Creatinine, Blood 2.77 mg/dL (0.40-1.00); Glomerular Filtration Rate 16 (60-); Glucose, Blood 85 mg/dL (70-99); Magnesium, Blood 2.4 mg/dL (1.6-2.4); Phosphorus, Blood 4.1 mg/dL (2.5-4.9); Potassium, Blood 4.3 mmol/L (3.5-5.5); Sodium, Blood 140 mmol/L (136-145)
--- NOTE | 2021-12-10 15:16 | NUR ---
Spiritual Care Visit in response to a Call Back. Pt. was sitting up and responsive. The pt. hearing required loud and close communication. Daughter of pt. was present. Daughter was unsettled about the the decisions they needed to make with regard to pt. care. Family in the process of deciding on comfort care. Daughter waiting on her brother before they talk to medical staff. Listened empathetically, pastoral grief employee counselor given. Prayed with daughter. Separately prayed with pt. Pt. verbalized gratitude for the visit and prayer. Daughter displayed evidence of agreement and verbalized gratitude for care and my visit.
--- NOTE | 2021-12-10 16:42 | NUR ---
Met with family to review her increasing demands for oxygen and prognsois. family feels she would not tolerate dialysis and that she is declining we discussed that if she responds to paliation and improves we can revisit treatment. She has hed stress they state the past few months have been a slow steady decline. She has not been able to really sleep for ahwile due to shorness of breath and not feeling well. will continue with monitoring and osygen tonight and reevaluate in AM will follow if any diuretics may need to continue.
--- NOTE | 2021-12-10 17:23 | NUR ---
SUMMARY PT PLACED ON COMFORT CARE, DAUGHTER IS AT THE BEDSIDE, PT HAS BEEN ANXIOUS AND HAVING AIR HUNGER FOR MOST OF THE DAY, DESATS WITH ANY ACTIVITY, REQUIRING EXTRA OXYGEN WHILE ANXIOUS, PT ABLE TO TAKE SMALL PILLS ONE AT A TIME WHOLE WITH WATER IF SHE IS AWAKE, PT HAS BEEN MED FOR COMFORT TO GOOD EFFECT, WILL CONT TO MONITOR
--- NOTE | 2021-12-11 06:54 | NUR ---
MECHANICAL METER TESTER SUMMARY PATIENT HAD A FAIR SHIFT. SHE DID HAVE SOME BOUTS OF ANXIETY. AND PAIN AND SHE WAS MEDICATED NEEDED. SHE WAS KEPT COMFORTABLE.
--- NOTE | 2021-12-11 10:41 | NUR ---
Pt's son Yoan called this am, requesting an update on pt's condition. According to primary RN, pt slept through the night. She isn't waking up no, but she doesn't appear to be in any pain or distress. No changes needed to plan of care at this time.
--- NOTE | 2021-12-11 17:26 | NUR ---
SHIFT SUMMARY PT HAS RESTED T/O SHIFT. DOES APPEAR TO WAKE UP & YELL OUT @ X's. WORDS ARE SLURRED/GARBLED & DOESN'T OPEN EYES. RESPONDS WELL TO ROXANYL BUT STILL REQUIRED ATIVAN x 2 FOR PULLING @ LINES, DISROBING, & YELLING OUT. OFFERED BITES & SIPS T/O DAY. NOT INTERESTED & PUSHES THEM AWAY. REPOSITIONED Q 2H & ATTENDS CHECKED Q2 CLEAN & DRY. LEIJA DRAINING URINE. FAMILY IN TO SEE PT FOR APPROX 2 HOURS DURING DAY.
--- NOTE | 2021-12-12 04:20 | NUR ---
SHIFT SUMMARY - NO ACUTE CHANGES THROUGHOUT THIS SHIFT. PT HAS SLEPT THROUGHOUT MOST OF THIS SHIFT. ORAL CARE PROVIDED X1, HOWEVER PT BIT DOWN ON THE SPONGE AND WOULDN'T RELEASE THE SPONGE - SPONGE INTACT. PT MEDICATED X1 WITH ROXICODONE SL FOR GRIMACING/MOANING. PT MEDICATED X1 WITH ATIVAN IV. PT WAS NON-VERBAL THROUGHOUT THE NIGHT. PT WAS ABLE TO MINIMALLY ASSIST WITH TURNS TO HER RIGHT SIDE ONLY. OTHERWISE PT DIDN'T FOLLOW ANY VERBAL INSTRUCTIONS GIVEN. LEIJA PUT OUT CLEAR YELLOW URINE. PT IS COMFORT CARE. WILL CONTINUE TO MONITOR UNTIL AM SHIFT CHANGE.
--- NOTE | 2021-12-12 17:05 | NUR ---
Received referral from nurse manager critical care unit (Gilda Simmons) on 12/12/2021. Patient is a current [facility] patient that was transferred to [facility] on 11/25/2021 due to acute renal failure. However, patient and family now desire for patient to discharge with orders for hospice and family elected [facility]. Gathered supporting documentation for referral (face sheet, labs, imaging, progress notes, palliative care note, and H&P) and sent to [facility] student development dean (Estevan Brooks) for review of hospice appropriateness and ability to accept patient onto service post discharge. Will await further information from hospice student development dean regarding the above. Krystle Griggs Referral Liaison
--- NOTE | 2021-12-12 17:25 | NUR ---
SHIFT SUMMARY: ON CONFORT CARE. NO ACUTE EVENTS. RESTLESS AND AGITATED AT TIMES, NON VERBAL, UNCOOPERATIVE WITH CARE AT TIMES. MEDICATED FOR AIR HUNGER AND ANXIETY PER EMAR WITH GOOD EFFECT. REPOSITIONED TOLERATED. DAUGHTERS VISITED THIS AFTERNOON.
--- NOTE | 2021-12-13 05:40 | NUR ---
SHIFT SUMMARY PT CONTINUES TO BE MOSTLY UNRESPONSIVE, RESTLESS AFTER REPOSITIONING. COMFORT CARE ORDERS IN PLACE. MEDICATED WITH 20MG ROXANOL PRN. CURRENTLY ON 15L HIGH FLOW NC. BED IN LOWEST POSITION WITH CALL LIGHT IN REACH. WILL CONTINUE TO MONITOR AND REPORT TO ONCOMING RN.
--- NOTE | 2021-12-13 13:56 | NUR ---
Met with pt's bedside nurse Suyapa and pt's daughter. Pt is no longer responsive. She does pick at the air occasionally, or pull at clothing, but no longer opening her eyes or responding to voice or touch. Breathing has become irregular and heavier. She appears to be transitioning. Pt's daughter states pt lives alone, and both she and her sister are only here visiting, so they were suprised to hear about a possible plan for hospice in pt's home. Unsure of current plan, as pt is no longer responsive, and she lives at home alone. Will follow up as asked by pt's daughter Soo.
--- NOTE | 2021-12-13 18:44 | NUR ---
SHIFT SUMMARY: ON COMFORT CARE. PT HAVING EPISODES OF SEVERE DYSPNEA, EVEN WITH O2 @ 12 L/MIN HIGH FLOW NC HUMIDIFIED. REQUIRING ROXICODONE AND ATIVAN ABOUT EVERY TWO HOURS FOR DYSPNEA AND AGITATION. IS NOT RESPONSIVE TO STIMULI, BUT DOES TRY TO SIT UP HIGH IN BED AND PUSHES HANDS AWAY DURING CARE INTERVENTIONS. DAUGHTERS WERE AT BEDSIDE INTERMITTENTLY TODAY. THEY REITERATED THAT THEY CANNOT ADEQUATELY CARE FOR THEIR MOTHER AT HOME EVEN WITH HOSPICE SUPPORT. DAUGHTER [employer], WITH WHOM MEREDITH ROGERS HAS BEEN SPEAKING, STATED THAT SHE WAS NEVER GIVEN THE OPTION OF PLACEMENT FOR HOSPICE, ONLY THAT PATIENT WOULD GO BACK TO HER HOME WITH HOSPICE. BOTH DAUGHTERS ARE FEELING OVERWHELMED AND FEEL THAT THEIR MOTHER IS BEING PUSHED OUT OF THE HOSPITAL INSTEAD OF BEING CARED FOR. GAVE PT ADVOCATE CONTACT NUMBER TO [employer].
--- NOTE | 2021-12-14 01:15 | NUR ---
PT IS AROUSABLE, AO TO SELF ONLY. GROANS WHEN BEING REPOSITIONED. PAIN MEDICATION PROVIDED. PATIENT TURNED Q2. FAMILY WAS AT BEDSIDE. PROVIDED COMFORT TO THEM ALSO. PT IS NOW LAYING ON BED IN LOWEST POSITION. CALL LIGHT WTIHIN REACH.
--- NOTE | 2021-12-14 10:35 | NUR ---
FAMILY IS AT THE BEDSIDE
--- NOTE | 2021-12-14 11:55 | NUR ---
PATIENT ON 12L O2 VIA [place]. FAMILY AT THE BEDSIDE. DR. NUR SAW THE PATIENT AT THE BEDSIDE AND SPOKE WITH THE FAMILY
--- NOTE | 2021-12-14 12:18 | NUR ---
Spiritual Care visit. Arrived at the same time Doctor Charli Amaral visited family. Stayed out in [place] till doctor visit was complete. Met daughters of pt. Re-established rapport with one I already knew. Facilitated a family life review. Pastoraly prayed with pt. and daughters. Daughter's displayed evidence of reduced stress after Dr. Amaral met them. Daughter's verbalized gratitude for being able to be with pt. I let them know how to contact me if there were any changes.
--- NOTE | 2021-12-15 04:25 | NUR ---
SHIFT SUMMARY PATIENT RECEIVED IN BED FAMILY BY BEDSIDE PATIENT DROWSY EASILY AROUSE WITH TOUCH NO ACUTE CHANGE IN THIS SHIFT CONTINUE COMFORT CARE TURNING AND REPOSTION Q 2HRS PAIN MEDICATION ADMIN PER ORDER LEIJA CATHETER DRANING CLEAR MARILEE URINE
--- NOTE | 2021-12-15 10:05 | NUR ---
Comfort Care Visit Pt resting in bed with her eyes opened. Pt does not respond or track with her eyes. Mild to moderate dyspnea, pain, and anxiety as evidenced by respiratory rate of 32/min, and constant movements of her upper extremities. Offered gentle touch and voice for reasurrance. Primary RN not available at this time. Relayed discomfort to SHI Olson and suggested Roxicodone for comfort. Attempted to return Pt's son Yoan's phone call. Left message with request for a return phone call. Palliative Care will remain available.
--- NOTE | 2021-12-15 15:52 | NUR ---
Spiritual Care visit. Pt. has significantly changed. Breathing is shallow and slower. Two daughters are present. Prayed over the pt. a prayer of blessing. While present a [facility] rep went over possible details for discharge home. Sisters called brother to come in and say good byes to pt. Facilitated a pretty lengthy life review, and established rapport with borther after he arrives. Family displays waves of catharsis and laughter as life review unfolds. Family verbalizes gratitude for both the hospital staff and spiritual care for them and the pt.
--- NOTE | 2021-12-15 17:42 | NUR ---
SHIFT SUMMARY- PT IS OBTUNDED. FAMILY HAS BEEN AT BEDSIDE THROUGHOUT THIS SHIFT. MEDICATED FOR PAIN ONCE THIS SHIFT. HER BREATHING HAS SLOWED THIS AFTERNOON, AND SHE HAS BECOME NONRESPONSIVE TO STIMULATION
--- NOTE | 2021-12-15 19:30 | NUR ---
PATIENT FAMILY REQUEST THAT OXYGEN TO BE DISCONTINUE. PATIENT EXHIBITING APNEIC BREATHING AT THIS TIME. EXPLAINED THAT DOCTOR NEEDED TO BE MADE AWARE OF THEIR REQUEST. CHARGE NURSE MADE AWARE OF THE FAMILY'S REQUEST. BEFORE DR WAS CALLED FAMILY VOICED THAT PATIENT IS NOT BREATHING ANYMORE. ASSESSMENT DONE, NO PULSE PRESENT.
--- NOTE | 2021-12-16 00:07 | NUR ---
PATIENT PRONOUNCE AT 1999 FAMILY BY THE BEDSIDE.DR MONTENEGRO MADE AWARE THE BODY WAS DISCHARGE TO HOME PICKED AT 2300
--- NOTE | 2021-12-16 07:23 | NUR ---
Late Entry from 12/15/2021 at 1430: Met with patient's daughters (Soo Mcghee and Whitney Sumit) to further discuss hospice services and the election of [facility]. Patient's daughters is agreeable to the above. Discussed what hospice is (reserved for patients with a terminal diagnosis with life expectancy of 6 months or less). Discussed that some patients exceed the 6 months expectancy and stay on service and some patients stabilize and come off hospice. Patient's daughters verbalized understanding of the above. Discussed with patient's daughters that hospice service focuses on quality of life at the end of life and that rather than measuring the quantity of days, the quality of those days would be measured. Discussed with patient's daughters that with hospice service the goal would be to keep the patient out of the hospital and comfortable by managing symptoms at home. Patient's daughters verbalized understanding. Discussed the people, prescriptions, and equipment of hospice. People- discussed the team of people and their roles (RNs, chaplains, therapists, LCSWs, CNAs, and volunteers) that would be there to support not only the patient but also their family during this time. Explained to the patient's daughters that the team would be custom tailored to the patient and family's needs during this time. Patient's daughters verbalized understanding. Prescriptions- discussed that we utilize a mail order pharmacy ([facility]) to provide medications related to the hospice diagnosis and for symptom management. All other medications that patient chose to stay on would be patient's and/or patient's family's responsibility to provide and pay for. Patient's daughters verbalized understanding. Discussed that upon discharge patient would be given three prescriptions, one for hydromorphone 1mg/mL #90mL (1.25mL - 5mL PO/SL Q1H PRN SOB/pain), one for lorazepam 0.5mg #20 (1 - 2 PO Q4H PRN anxiety), and one for hyoscyamine 0.125mg SL tablets #30 (1 SL Q2H PRN secretions). Explained to the patient's daughters that as patient would not yet be admitted to hospice service at the time of discharge those prescriptions would be patient/patient's family's responsibility to fill and pay for. Patient's daughters verbalized understanding. Equipment- discussed with patient's daughters that we contract through [facility] [employer] to provide DME such as hospital beds, commodes, etc. to patient. Wrote order for DME (hospital bed, full rails, over bed table, pump & pad, and oxygen at 1-5 LPM) and sent to [facility] for delivery on Saturday- 12/18/2021. Discussed with patient's daughters that [facility] does not supply the sheets for the beds. Discussed that one of two options can be used- either a twin extra-long fitted sheet OR a recio sized flat sheet wrapped around the pump & pad. Patient's daughters verbalized understanding. Discussed with patient's daughters that once patient was admitted onto hospice services the goal would be for them to contact us ([facility]) over contacting 911 or presenting back to the hospital/ED. Patient's daughters verbalized understanding. Discussed the tentative discharge plans for Saturday- 12/18/2021 at 1030 with preferred mode of transportation- medical transport via gurney. Explained to patient's daughters that I would arrange transportation for patient. Patient's daughters verbalized understanding. Offered a chance for patient's daughters to ask questions regarding the above of which there were none. Will continue to monitor and follow as appropriate for discharge. Krystle Griggs Referral Liaison
--- NOTE | 2021-12-18 08:14 | NUR ---
Review of patient's records today indicate that patient on Saturday- 12/15/2021. Notified [facility] [place] photographer finish (Estevan Brooks) of the above. Cancelled delivery of equipment through [facility] and transportation through [facility]. No further interventions required. Krystle Griggs Referral Liaison
== END 2021-12-15 20:00 | DRG 177 ==
LOC: ER 17:54 → MEDS 22:17 → ER 22:17 → ERHOLD 22:17 → MEDS 11-26 16:43 → ERHOLD 11-26 16:46 → MEDS 11-26 16:47
PROVIDERS: Emergency Medicine; Internal Medicine; Internal Medicine Nephrology; ADMIT Internal Medicine
PROC: 8E0ZXY6 Isolation (ICD-10-PCS; principal; 2021-11-28)
PROC: 3E0DX3Z Introduction of Anti-inflammatory into Mouth and Pharynx, External Approach (ICD-10-PCS; 2021-12-02)
PROC: 5A09557 Assistance with Respiratory Ventilation, Greater than 96 Consecutive Hours, Continuous Positive Airway Pressure (ICD-10-PCS; 2021-12-03)
DX: U07.1 COVID-19 (principal); J12.82 Pneumonia due to coronavirus disease 2019; J96.21 Acute and chronic respiratory failure with hypoxia; N17.9 Acute kidney failure, unspecified; S32.018A Other fracture of first lumbar vertebra, initial encounter for closed fracture; S32.028A Other fracture of second lumbar vertebra, initial encounter for closed fracture; E87.1 Hypo-osmolality and hyponatremia; D61.818 Other pancytopenia; N39.0 Urinary tract infection, site not specified; J44.0 Chronic obstructive pulmonary disease with (acute) lower respiratory infection; N25.81 Secondary hyperparathyroidism of renal origin; I13.0 Hypertensive heart and chronic kidney disease with heart failure and stage 1 through stage 4 chronic kidney disease, or unspecified chronic kidney disease; Z51.5 Encounter for palliative care; Z66 Do not resuscitate; N18.30 Chronic kidney disease, stage 3 unspecified; D63.1 Anemia in chronic kidney disease; K21.9 Gastro-esophageal reflux disease without esophagitis; F03.90 Unspecified dementia, unspecified severity, without behavioral disturbance, psychotic disturbance, mood disturbance, and anxiety; E83.51 Hypocalcemia; M10.9 Gout, unspecified; I50.9 Heart failure, unspecified; Z96.653 Presence of artificial knee joint, bilateral; E03.9 Hypothyroidism, unspecified; E87.6 Hypokalemia; E83.42 Hypomagnesemia; M51.36 Other intervertebral disc degeneration, lumbar region; E83.39 Other disorders of phosphorus metabolism; F43.21 Adjustment disorder with depressed mood; R82.71 Bacteriuria; Z91.013 Allergy to seafood; Z90.710 Acquired absence of both cervix and uterus; Z90.49 Acquired absence of other specified parts of digestive tract; Z90.89 Acquired absence of other organs; Z98.890 Other specified postprocedural states; Z88.0 Allergy status to penicillin; Z88.8 Allergy status to other drugs, medicaments and biological substances; Z79.899 Other long term (current) drug therapy; W18.39XA Other fall on same level, initial encounter
CPT/HCPCS: 0097U; 0241U; 36415; 51701; 51798; 71045; 72131; 72170; 80048; 80053; 80069; 81001; 81003; 82607; 82746; 83735; 83880; 85014; 85018; 85025; 87077; 87086; 87186; 92526; 92610; 93005; 93010; 93306; 93970; 94640; 94760; 94762; 96372; 96372-59; 96374; 96375; 96376; 97110; 97162; 97165; 97530; 99285-25; A9270; C1751; G0378; J0881; J1200; J1644; J2060; J2405; J3010; J3475; J7030; J7060; P9046